=== PATIENT | female | born 1995 | race Caucasian/White ===

== ENCOUNTER 2019-06-04 14:37 | Outpatient (REF) | payer OTHER, SELFPAY ==
--- NOTE | 2019-06-04 11:30 | PAPFT_PTH ---
PATIENT: Nicolasa Baumann LOC: [facility] U#:[id number] AGE/SX: 23/F ROOM: RE06/04/[address]: HALLIE Morris : 1995 BED: DIS: 06/04/2019 SPEC #: [id number] RECD: 06/04/19 15:02 STATUS: TIP GOTTLIEB #: [id number] SUKHWINDER: 06/04/19 11:[address]: Julia Escobar DEPT: [facility] Cytology RECD BY: Samia Bradford Tissues: 1 - CX/ENDOCX FOR PAP SMEARS Procedures: PAP THIN PREP/UVM Screening Comments: [id number]
== END 2019-06-04 14:57 ==
LOC: LBN 14:37
PROVIDERS: PCP Nurse Practitioner Family; Visit Provider Nurse Practitioner Family
DX: Z12.4 Encounter for screening for malignant neoplasm of cervix (principal)
CPT/HCPCS: 88142

== ENCOUNTER 2020-07-08 01:02 | Outpatient (CLI) | payer OTHER, SELFPAY ==
--- NOTE | 2020-07-08 07:19 | DI.US_ITS ---
EXAM: US OB 2-3 TRIMESTER W MOD CLINICAL HISTORY: late dating usg 14 + weeks,Z34.90 TECHNIQUE: Ultrasound performed using standard protocol. COMPARISON: No exams were available for comparison FINDINGS: Ob ultrasound was performed utilizing 1st trimester protocol. biometry is consistent with gest ational age of 13 weeks 6 days and EDC 01/07/2021. Placenta is anterior and low lying with the place ntal tip lying about 14 millimeters from the cervix, however at less than 14 weeks is not necessarily an abnormal finding.. No gross placenta previa. There is visually a normal quantity of amniotic fluid. heart rate is 153 BPM. IMPRESSION: Thirteen week 6 day intrauterine gestation, a routine 2nd trimester protocol scan may be obtained to evaluate placental location and perform anomaly screen. DATA REPOSITORY:
== END 2020-07-08 01:22 ==
PROVIDERS: PCP Nurse Practitioner Family; Visit Provider Advanced Practice Midwife
DX: Z34.91 Encounter for supervision of normal pregnancy, unspecified, first trimester (principal)
CPT/HCPCS: 76805

== ENCOUNTER 2020-07-08 15:17 | Outpatient (CLI) | payer OTHER, SELFPAY ==
[2020-07-08 16:02] LABS: Abs Immature Grans 0.04 10^3/uL (0.0-0.06); Absolute Basophil Count 0.03 10^3/uL (0.0-0.2); Absolute Eosinophil Count 0.02 10^3/uL (0.0-0.7); Absolute Lymphocyte Count 1.75 10^3/uL (1.2-3.4); Absolute Monocyte Count 0.41 10^3/uL (0.1-0.8); Absolute Neutrophil Count 7.63 10^3/uL (1.2-6.7); Basophils % 0.3; Eosinophils % 0.2; HCT 41.4 % (36.0-46.0); HGB 13.8 g/dL (11.2-15.7); Immature Grans % 0.4; Lymphocytes % 17.7; MCH 29.6 pg (27.0-33.0); MCHC 33.3 % (32.0-36.0); MCV 88.7 fL (80-95); Monocytes % 4.1; Neutrophils % 77.3; Nucleated RBC 0 %; Platelet Count 156 10^3/uL (130-400); RBC 4.67 10^6/uL (3.93-5.22); RDW 13.5 % (11.7-14.6); WBC 9.88 10^3/uL (4.4-10.8)
[2020-07-08 17:09] LABS: TSH (W/Ref FT4) 0.06 uIU/mL (0.36-3.74)
[2020-07-08 18:37] LABS: FREE T4 1.14 ng/dL (0.76-1.46)
[2020-07-09 09:44] LABS: HIV-1/2 Ag & Ab Screen Negative (Negative)
[2020-07-09 10:57] LABS: Varicella IgG Antibody Positive (See Note)
[2020-07-09 11:01] LABS: Rubella IgG Ab (UVM) Positive (See Note)
[2020-07-09 16:08] LABS: Hepatitis B Surface Ag Negative (Negative)
[2020-07-09 16:52] LABS: Hepatitis C Ab w Rflx HCV PCR Negative (Negative)
[2020-07-10 10:46] LABS: Syphilis Total Ab w/Reflex Nonreactive (Nonreactive)
== END 2020-07-08 15:37 ==
PROVIDERS: PCP Nurse Practitioner Family; Visit Provider Advanced Practice Midwife
DX: Z34.91 Encounter for supervision of normal pregnancy, unspecified, first trimester (principal)
CPT/HCPCS: 36415; 86787; 86803; 86850; 86900; 86901; 87340; 87389; 84439; 84443; 85025; 86762; 86780

== ENCOUNTER 2020-07-08 16:05 | Outpatient (REF) | payer OTHER, SELFPAY ==
[2020-07-08 19:30] LABS: *AMPHETAMINES SCREEN URINE Negative (Negative); *BARBITURATES SCREEN URINE Negative (Negative); *BENZODIAZEPINES SCREEN URINE Negative (Negative); Cannabinoids THC Negative (Negative); Cocaine Screen,Urine Negative (Negative); METHADONE URINE SCREEN Negative (Negative); OPIATES URINE SCREEN Negative (Negative)
[2020-07-08 19:32] LABS: Tricyclic Antidepressants Negative (Negative)
[2020-07-12 12:29] LABS: Buprenorphine Negative; Norbuprenorphine Negative
== END 2020-07-08 16:25 ==
LOC: LBN 16:05
PROVIDERS: PCP Nurse Practitioner Family; Visit Provider Advanced Practice Midwife
DX: Z34.91 Encounter for supervision of normal pregnancy, unspecified, first trimester (principal)
CPT/HCPCS: 80307; 87086

== ENCOUNTER 2020-08-12 01:28 | Outpatient (CLI) | payer OTHER, SELFPAY ==
--- NOTE | 2020-08-12 08:30 | DI.US_ITS ---
EXAM: US OB 2-3 TRIMESTER CLINICAL HISTORY: , Z34.90. TECHNIQUE: Transabdominal obstetrical ultrasound performed. COMPARISON: US US OB 2-3 TRIMESTER W MOD from 07/08/2020 FINDINGS: Transabdominal obstetrical ultrasound performed. FINDINGS: Number of fetuses: One. position: Vertex. heart rate: bpm. Placental grade: 1 Placental location: Anterior, low lying. The tip of the placenta measures 1.6 cm from the internal o s. BIOMETRIC DATA: BPD: 43 millimeters, 18+ 6 weeks HC: 160 millimeters, 18+ 6 weeks AC: 133 millimeters, 18+ 6 weeks FL: 29 millimeters, 19+ 0 weeks Cisterna Magna: 2.2 millimeters Cerebellum: 1.87 cm EFW: 262 grms 64% Composite Age: 18+ 6 weeks EDC by US: December, Heart Rate: 147BPM Amniotic fluid index: Amount of fluid is within normal limits. ANATOMICAL SURVEY: Four-chamber heart: Unremarkable. LVOT: Unremarkable. RVOT: Unremarkable. Left-sided stomach: Unremarkable. urinary bladder: Unremarkable. Bilateral kidneys: Unremarkable. Three-vessel cord: Unremarkable. Cord insertion: Unremarkable. Umbilical artery velocity: Unremarkable. Posterior fossa:Unremarkable. ventricles: Unremarkable. nose: Unremarkable. lips: Unremarkable. palate: Unremarkable. spine: Unremarkable. Two arms and two legs: Unremarkable. IMPRESSION: 1. Single live intrauterine gestation measuring 18 weeks 6 days.. 2. Normal anatomic survey. 3. Low-lying placenta. DATA REPOSITORY:
== END 2020-08-12 01:48 ==
PROVIDERS: PCP Nurse Practitioner Family; Visit Provider Advanced Practice Midwife
DX: Z34.92 Encounter for supervision of normal pregnancy, unspecified, second trimester (principal); O44.42 Low lying placenta NOS or without hemorrhage, second trimester
CPT/HCPCS: 76805

== ENCOUNTER 2020-08-12 15:40 | Outpatient (CLI) | payer OTHER, SELFPAY ==
[2020-08-12 16:22] LABS: TSH (W/Ref FT4) 0.52 uIU/mL (0.36-3.74)
== END 2020-08-12 16:00 ==
PROVIDERS: PCP Nurse Practitioner Family; Visit Provider Advanced Practice Midwife
DX: R94.6 Abnormal results of thyroid function studies (principal)
CPT/HCPCS: 36415; 84443

== ENCOUNTER 2020-10-15 03:32 | Outpatient (CLI) | payer OTHER, SELFPAY ==
[2020-10-15 16:25] LABS: HCT 35.7 % (36.0-46.0); HGB 11.8 g/dL (11.2-15.7); MCHC 33.1 % (32.0-36.0); MCV 93.7 fL (80-95); MPV 10.4 fL (8.0-11.0); Platelet Count 141 10^3/uL (130-400); RBC 3.81 10^6/uL (3.93-5.22); RDW 14.5 % (11.7-14.6); RDW-SD 49.6 fL; WBC 9.07 10^3/uL (4.4-10.8)
[2020-10-15 16:44] LABS: Glucose,1 Hr (Glucola) 98 mg/dL (80-140)
== END 2020-10-15 03:52 ==
PROVIDERS: PCP Nurse Practitioner Family; Visit Provider Advanced Practice Midwife
DX: Z34.91 Encounter for supervision of normal pregnancy, unspecified, first trimester (principal)
CPT/HCPCS: 36415; 82950; 85027

== ENCOUNTER 2020-12-10 19:12 | Outpatient (REF) | payer OTHER, SELFPAY ==
[2020-12-10 17:18] LABS: *AMPHETAMINES SCREEN URINE Negative (Negative); *BARBITURATES SCREEN URINE Negative (Negative); *BENZODIAZEPINES SCREEN URINE Negative (Negative); Cannabinoids THC Negative (Negative); Cocaine Screen,Urine Negative (Negative); METHADONE URINE SCREEN Negative (Negative); OPIATES URINE SCREEN Negative (Negative)
[2020-12-10 17:29] LABS: Tricyclic Antidepressants Negative (Negative)
[2020-12-16 10:00] LABS: Buprenorphine Negative ng/mL (Cutoff: 5.0)
== END 2020-12-10 19:32 ==
LOC: NCHCN 19:12
PROVIDERS: PCP Nurse Practitioner Family; Visit Provider Advanced Practice Midwife
DX: Z34.93 Encounter for supervision of normal pregnancy, unspecified, third trimester (principal); Z3A.36 36 weeks gestation of pregnancy
CPT/HCPCS: 80307; 87081

== ENCOUNTER 2021-01-04 19:30 | Inpatient (IN) | payer OTHER, SELFPAY ==
[2021-01-04] VITALS (19 sets, daily range): BP systolic 118–170; BP diastolic 71–98; PULSE 78–129; O2SAT 99–100
--- NOTE | 2021-01-04 20:18 | W.PM.OBHPL1 ---
Date of service: 01/04/21 Time of Service: 20:18 Assessment and Plan Assessment and plan (1) 39 weeks gestation of : Status: Acute Assessment and plan: A: primipara, low risk , arrived to in 2nd stage labor SROM clear confirmed Category 1 tracing w/earlies GBS neg, low risk for SD and PPH P: Admit to , draw CBC and T&S, COVID swab Expectant management Anticipate shortly OB-HPI Labor/Delivery History of Present Illness Reason for Visit: SHOM,LABOR AT TERM Chief Complaint: Uterine Contractions; Suspected Rupture of Membranes , Associated Signs and Symptoms of Suspected ROM: leaking clear and blood tinged fluids since 1330 today, paged manager educational at 1830 stating her contractions had become regular since 1800, pt directed to come to the Center for evaluation.. DUANE Calculator Estimated Delivery Date Method Current WG Current Estimate 01/07/21 Ultrasound #1 39w 4d Other Estimates 12/11/20 LMP (Uncertain) 43w 3d History of Present Expected Delivery Route/Plan - CNM FOB/- Niko Baumann Doesn't want to know gender GBS negative Specific Issues/Plan 1. Enlarged thyroid - TSH drawn 07/08, TSH low 0.06, T4- 1.14, 1a. TSH/free T4 repeated 08/12 = TSH nml at 0.52, free T4 not indicated 2. Declines genetic testing. 3. anatomy survey shows low lying placenta, repeat @ 28 wks. 3a. Declined US at 28 weeks because partner could not attend. Agrees to postpone until 32 weeks to see if restrictions change. 3b. [facility] 11/28/20 usg: edge of placenta 9.6 cm from os. al Review of Systems All systems reviewed & are unremarkable except as noted in HPI and below Constitutional Constitutional: Reports as per HPI and Reports system reviewed and no additional complaints, except as documented Cardiovascular Cardiovascular: Reports system reviewed and no additional complaints, except as documented Respiratory Respiratory: Reports system reviewed and no additional complaints, except as documented Gastrointestinal Gastrointestinal: Reports system reviewed and no additional complaints, except as documented and Reports nausea Genitourinary Genitourinary: Reports system reviewed and no additional complaints, except as documented and Reports vaginal discharge Musculoskeletal Musculoskeletal: Reports system reviewed and no additional complaints, except as documented Integumentary/Breasts Skin/Breast: Reports system reviewed and no additional complaints, except as documented Neurologic Neurologic: Reports system reviewed and no additional complaints, except as documented Psychiatric Psychiatric: Reports system reviewed and no additional complaints, except as documented [facility] Medical History (Updated 01/05/21 @ 00:27 by Miri Barragan) Abnormal thyroid stimulating hormone (TSH) level Low lying placenta nos or without hemorrhage, second trimester Family History (Updated 07/08/20 @ 14:29 by Sowmya Gabriel CNM) Maternal Grandmother Breast cancer Mother Hyperlipidemia Father Hypertension Hyperlipidemia Paternal Grandmother Parkinson disease Social History (Updated 06/04/19 @ 11:42 by Julia Escobar NP) Smoking/Tobacco Use Status: Never Smoking risk assessment performed?: Yes current occupation: [employer] Female Reproductive History Menstrual control method: condoms History History 1 Para 0 Hx # Term Pregnancies 0 Multiple births 0 Hx # Pregnancies 0 Ectopic pregnancies 0 AB induced 0 Hx Number of Living Children 0 AB spontaneous 0 Meds Home Medications and Allergies Home Medications Medication Instructions Recorded Confirmed Type prenat.vits,quinton,[id number] 1 tab PO DAILY 06/20/20 12/26/20 History Allergies Allergy/AdvReac Type Severity Reaction Status Date / Time gluten AdvReac Mild Unverified 12/10/20 13:55 Exam Physical Exam Vital Signs Reviewed: Yes Constitutional Constitutional: moderate distress and average body habitus Detailed Labor and Delivery Exam Dilation: 10 station: +3 Amniotic Membrane Status: Ruptured Rupture Method: Spontaneous Amniotic Fluid: Clear (grossly ruptured, fluid visibly draining from introitus) Contraction Frequency(min): q 2-3 minutes Contraction Intensity: Moderate/Strong Fetus A Heart Rate Baseline: 140 Monitor Accelerations: 15 X 15 Monitor Decelerations: Early Variability: Moderate (6-25 BPM) Presentation: Vertex Categories: Category I Est. Weight: 7 lb 4.404 oz Est. Weight: 3300 gms Date of Membrane Rupture: 01/04/21 Time of Membrane Rupture: 13:30 HEENT Exam HEENT Exam: Normal Neck Exam Neck Exam: Normal Chest/Brest/Axilla Exam Chest Exam: Normal Breast Exam Breast Exam: Normal Respiratory Exam Respiratory Exam: Normal Cardiovascular Exam Cardiovascular Exam: Normal Abdominal Exam Abdominal Exam: Normal (gravid) Rectal Exam Rectal Exam: Not Done Exam Exam: Normal Extremities Exam Extremities Exam: Normal Back/Spine/Pelvis Exam Back Exam: Normal Pelvis Adequate: Yes Skin Exam Skin Exam: Normal Neurological Exam Neurological Exam: Normal Psychiatric Exam Psychiatric Exam: Normal Results Results Group Beta Strep: Negative Blood Type: A+ Rubella Status: Immune Varicella Immunity: Immune Risk Assessment Risk for Shoulder Dystocia Historical/Initial OB: NEGATIVE FOR: Pelvic Abnormality, Pre- BMI>30, Previous Shoulder Dystocia or Previous Macrosomia Increased Risk?: No Date/Initial: 12/19/20/al Delivery Plan @ 36wks: al Risk for Pre-Eclampsia Daily Dose ASA Indicated: No Yes, if one or more: NEGATIVE FOR: Hx Pre-E/Gest HTN, Chronic HTN, Multiple Gestation, Pre-gestational DM, Renal Disease, Systemic Lupus or APA Syndrome Yes, if 2 or more: POSITIVE FOR: Nulliparity; NEGATIVE FOR: Age>= 35 yrs, >10yr btwn pregnancies, BMI>30, ethinicty, Mother/Sister w/ Pre-E or Previous IUGR Risk for Post- Hemorrhage Initial: NEGATIVE FOR: Multiple Gestation, Previous PPH, Known Clotting Deficiency, Grand Multiparity or Anticoagulation At Risk?: No Counseled re: Active Management: Yes (12/19/20 al) Date/Initials: 12/19/20 al Risks Reviewed Risks Reviewed Upon Admission: Yes
--- NOTE | 2021-01-04 20:33 | NUR.NOTE ---
Nursing Note: Tub temp 99F
[2021-01-04 20:38] LABS: HCT 37.6 % (36.0-46.0); HGB 12.3 g/dL (11.2-15.7); MCH 28.5 pg (27.0-33.0); MCHC 32.7 % (32.0-36.0); MCV 87.2 fL (80-95); MPV 11.7 fL (8.0-11.0); Platelet Count 148 10^3/uL (130-400); RBC 4.31 10^6/uL (3.93-5.22); RDW 13.7 % (11.7-14.6); RDW-SD 43.8 fL; WBC 15.05 10^3/uL (4.4-10.8)
--- NOTE | 2021-01-04 21:24 | NUR.NOTE ---
Nursing Note:near
[2021-01-04 21:57] LABS: Source Nasopharynx
[2021-01-04] MEDS: Oxytocin 10 UNITS/ML VIAL IM (22:00)
[2021-01-04] MEDS: Methylergonovine 0.2 MG/ML VIAL IM (22:15)
[2021-01-04] MEDS: Lactated Ringers 1,000 ML 1000 ML IV (22:15)
[2021-01-04 22:43] LABS: COVID-19 PCR Negative (Negative); Influenza A PCR Negative (Negative); Influenza B PCR Negative (Negative); RSV PCR Negative (Negative)
[2021-01-04] MEDS: fentaNYL 100 MCG/2 ML VIAL IVP (22:45)
[2021-01-04] MEDS: Oxytocin/Normal Saline 30 UNIT/500 ML BAG 95 UNITS IV (23:10)
[2021-01-05] VITALS (8 sets, daily range): BP systolic 99–163; BP diastolic 58–86; PULSE 68–97; RESP 16–18; TEMP 36.6–36.8; O2SAT 98–99
--- NOTE | 2021-01-05 00:28 | NUR.NOTE ---
Nursing Note:01/04/21@2220 Dr. Macias called to evaluate pt for bleeding from possible vaginal laceration. [id number] Dr Macias at bedside.
--- NOTE | 2021-01-05 00:31 | W.OBDELIVERY ---
Date of service: 01/04/21 Time of Service: 23:30 OB Labor/ Delivery Information Baby A Delivery Delivery Method: Spontaneaous Presentation: Vertex Vertex Position: Left Occipital Anterior Breech Position: N/A Cord Description-Baby A: 3 Vessels Amniotic Fluid: Clear Estimated Blood Loss: 800 Delivery Outcome: Liveborn Infant Transferred: Remains with Mother Note: Pt arrived fully dilated with mild urges to bear down, category 1 tracing verified and admission procedures completed, pt requested to push in the tub, entered the tub 45 minutes after arrival to unit, water temp 99 degrees and intermittent FHT auscultation done per protocol. over intact perineum, loose nuchal cord reduced overhead, shoulders transverse which delivered easily, vigorous female to mother's arms, kept warm with blankets and pouring warm water over blankets while held by mother, pitocin 10 units IM given, Rene placenta intact with 3 VC, then cord clamped, cut by FOB. Bonding time in tub x 30 minutes with nml rubra noted, FOB held baby while mother assisted to bed. Bilateral labial lacerations noted, perineum intact. Right labial lac is superficial, not bleeding, not repaired. Local anesthesia injected to left labia and repair done with 3.0 Vicryl at which time increasing vaginal bleeding observed. Methergine 0.2 mg IM given, fundus firm below umbilicus and bladder not palpable. Source of bleeding identified from laceration on left side of lower vaginal wall but visualization quite difficult and bleeding persistent. Dr. Macias paged, IV access initiated, LR bolus begun and TXA [address] Macias arrived at 2235, additional suturing under further local anesthesia, IV fentanyl given for pain, and use of wall suction to assist with visualization performed, see MD repair note. Left vaginal wall hematoma identified and stable. EBL 600 ml per MD. Pt's BP and pulse remained stable, fundus remains firm and below umbilicus. wt 3470 gms, apgars 8/9. Initial debriefing done with pt and regarding blood loss, diagnosis and treatment measures, will continue to discuss and review with pt/ as needed throughout hospital stay. Excellent family bonding observed. Providers Doctor: Marielos Macias Nurse Coagulation Operator: iMri Barragan Nurse: Zayra Loza Nurse: Enrique Huber Labor/Delivery Information Number of Babies in Womb: 1 Steroids Given: None Reason Steroids Not Administered: N/A Group Beta Strep: Negative Antibiotics Administered: No Rubella Status: Immune Blood Type: A+ Varicella Immunity: Immune Maternal Complications: Hemorrhage (600-800 ml EBL) and Other (increased blood loss d/t vaginal laceration, left vaginal wall hematoma) Shoulder Dystocia: No Stages of Labor Onset of Labor Date: 01/04/21 Onset of Labor Time: 17:00 Complete Dilatation Date: 01/04/21 Complete Dilatation Time: 20:15 Labor - Stage 1 Duration: 0 minutes ROM Baby A: 01/04/21 ROM Baby A: 13:30 ROM Total Time- Baby A: [id number] Delivery Date-Baby A: 01/04/21 Infant Delivery Time-Baby A: 21:35 Labor Stage 2 Duration: 1 hours and 20 minutes Placenta Delivery Date-Baby A: 01/04/21 Placenta Delivery Time-Baby A: 21:40 Labor-Stage 3 Duration: 5 minutes Total Length of Labor-Baby A: 4 hours and 35 minutes Placenta Status: Delivered Baby A Gender: Female Gestational Status: Term (39-41.6 wks) weight: 7 lb 10.401 oz Weight Comment: 3470 gms Score-1 Minute Interval(Baby A) Heart Rate-1 minute: 100 BPM or Greater Respiratory Effort- 1 minute: Spontaneous/Strong Cry Muscle Tone-1 minute: Active Movement Reflex Response-1 minute: Prompt Response Color-1 minute: Pallor or Cyanosis Score-5 Minute Interval(Baby A) Heart Rate- 5 minute: 100 BPM or Greater Respiratory Effort-5 minute: Spontaneous/Strong Cry Muscle Tone-5 minute: Active Movement Reflex Response-5 minute: Prompt Response Color-5 minute: Bluish Hands or Feet Procedure Procedures: Control of Hemorrhage , Pitocin 10 units given IM prophylactically immediately after delivery, 0.2 mg Methergine IM given as vaginal bleeding was identified 15 minutes later, IV access and LR bolus initiated, TXA 1 gm infusion given at 1 hr and repeated 1 hr later after bleeding was brought under control by laceration repair and left vaginal hematoma was identified. / Cord Blood Collection Interventions Repair of Laceration Type: Other (left labia, left lower vaginal wall and floor) , Laceration Extension: N/A . Sponge Count Correct: Yes , Sharp Count Correct: Yes . Laceration Repair Note: left labia repaired by TU w/3.0 Vicryl, left lower vaginal wall and floor repair by MD with 3.0 Vicryl, local anesthesia and IV fentanyl Shoulder Dystocia Delivery Times Date of Delivery of Head: 01/04/21
[2021-01-05] MEDS: Acetaminophen 325 MG TAB 650 MG PO ×4 (00:33→19:25)
[2021-01-05] MEDS: Ibuprofen 600 MG TAB PO ×4 (00:35→22:00)
[2021-01-05] MEDS: oxyCODONE 5 MG TAB PO ×3 (03:00→19:24)
--- NOTE | 2021-01-05 08:33 | W.PM.OBPNV1 ---
Date of service: 01/05/21 Time of Service: 08:33 Assessment and Plan Assessment and plan (1) Term delivered: Status: Acute Assessment and plan: A: 12 hours Status stable/improving well P: Pt denies dizziness, states she is feeling well Plan for CBC this morning Routine care support Anticipate discharge in 1-2 days (2) Hematoma of vagina during delivery: Status: Acute Assessment and plan: A: Stable and resolving P: Monitor for continued improvement Subjective Subjective Interval history: Pt states this morning that she is feeling better then a few hours ago, pressure and discomfort in vaginal area has improved, no dizziness when up to void. Patient comments: Pain well controlled, Tolerating diet and Flatus present [place] baby status: Doing well, Nursing well, Rooming in and Strong Bonding Observed feeding status: Exclusively breast feeding Exam Physical Exam Vital signs: Temp Pulse Resp BP Pulse Ox 98.1 F 68 18 99/58 L 100 01/05/21 06:06 01/05/21 06:06 01/05/21 06:06 01/05/21 06:06 01/04/21 23:19 Vital Signs Reviewed: Yes Constitutional Constitutional: no acute distress HEENT Exam HEENT Exam: Normal Neck Exam Neck Exam: Normal Breast Exam Bilateral: Breast Exam: Normal and Soft Nipple Exam: Normal and Uninjured Respiratory Exam Respiratory Exam: Normal Cardiovascular Exam Cardiovascular Exam: Normal Abdominal Exam Abdomen: Other (soft, nontender) Fundal Exam Fundus: Below Umbilicus and Firm Rectal Exam Rectal Exam: Normal Exam Perineum: Hematoma (vaginal, not visible, known by delivery hx), Intact and Repair Intact (labial repair and vaginal wall/floor intact) External: Present normal urethra appearance and vulvar tenderness Extremities Exam Extremity Exam: Normal Back/Spine/Pelvis Exam Back Exam: Normal Skin Exam Skin Exam: Normal Psychiatric Exam Psychiatric Exam: Normal (tired)
--- NOTE | 2021-01-05 10:55 | W.OBCONSULT ---
Date of service: 01/04/21 Time of Service: 22:35 History of Present Illness History of Present Illness Chief Complaint: Called to evaluate patient by TU Barragan Narrative: I was paged by the nursing staff at the birthing center at [facility] at 22:20 with reports of a vaginal delivery complicated by increased vaginal bleeding and difficulty assessing and repairing a vaginal laceration. I arrived at 22:35 and started assessment of a left sided vaginal laceration that had increased bleeding and poor visualization per patient discomfort and volume of bleeding. The patient had an IV and had received methergine and IM pitocin and 1 gram of TXA was being administered as I arrive for evaluation. I started assessment and placed wall suction, asked for lap pads, gave additional local pain medication as well as 100mcg of Fentanyl for patient pain control. She was also recieving Nitrous Oxide when I arrived and had been placed on a continuous pulse oximeter. The uterus was firm and the bleeding was clearly visualized coming from the left vaginal side wall. Initial attempts to control bleeding were difficult and the OR team was paged however, with additional visualization measures and pain control the left vaginal side wall was sewn with running locking 3-0 vicryl and bleeding was controlled. The OR team was advised that they were not needed. Careful inspection of the vagina and cervix did not reveal a high sulcal or vaginal tear, there was no perineal involvement. Left outer vaginal side wall and labia appear to have a small hematoma which had increased bleeding but was hemostatic at the end of the repair. The small right periurethral tear was not repaired per it's hemostatic state. I recommended an additional dose of 1 gram of TXA administration given the highly vascular nature of the bleeding. Consults Consult date: 01/04/21 Requesting physician: Miri Barragan [facility] Medical History (Updated 01/05/21 @ 08:38 by Miri Barragan) Abnormal thyroid stimulating hormone (TSH) level Low lying placenta nos or without hemorrhage, second trimester Family History (Updated 07/08/20 @ 14:29 by Sowmya Gabriel CNM) Maternal Grandmother Breast cancer Mother Hyperlipidemia Father Hypertension Hyperlipidemia Paternal Grandmother Parkinson disease Social History (Updated 06/04/19 @ 11:42 by Julia Escobar NP) Smoking/Tobacco Use Status: Never Smoking risk assessment performed?: Yes current occupation: [employer] Female Reproductive History Menstrual control method: condoms History History 1 Para 0 Hx # Term Pregnancies 0 Multiple births 0 Hx # Pregnancies 0 Ectopic pregnancies 0 AB induced 0 Hx Number of Living Children 0 AB spontaneous 0 Results Last Vital Signs Temp 98.2 F 01/05/21 07:30 Pulse 86 01/05/21 07:30 Resp 16 01/05/21 07:30 BP 127/80 01/05/21 07:30 Pulse Ox 100 01/04/21 23:19 Labs Result diagrams: 01/04/21 20:30 Labs: Laboratory Results - last 24 hr 01/04/21 01/04/21 01/04/21 20:25 20:25 20:25 WBC RBC Hgb Hct MCV MCH MCHC RDW Plt Count MPV COVID-19 Source Nasopharynx SARS-CoV-2 (PCR) Cancelled Negative Nasopharyn COVID-19 PCR Cancelled Influenza Type A (PCR) Negative Influenza Type B (PCR) Negative RSV (PCR) Negative Ref Test Perform Site Cancelled Patient ABO/Rh A Positive Antibody Screen Negative 01/04/21 20:30 WBC 15.05 H RBC 4.31 Hgb 12.3 Hct 37.6 MCV 87.2 MCH 28.5 MCHC 32.7 RDW 13.7 Plt Count 148 MPV 11.7 H COVID-19 Source SARS-CoV-2 (PCR) Nasopharyn COVID-19 PCR Influenza Type A (PCR) Influenza Type B (PCR) RSV (PCR) Ref Test Perform Site Patient ABO/Rh Antibody Screen
[2021-01-05 11:46] LABS: HGB 8.1 g/dL (11.2-15.7); MCHC 33.8 % (32.0-36.0); Platelet Count 131 10^3/uL (130-400); RBC 2.79 10^6/uL (3.93-5.22); RDW 13.9 % (11.7-14.6); RDW-SD 43.3 fL; WBC 11.79 10^3/uL (4.4-10.8)
[2021-01-05] MEDS: Docusate Sodium 100 MG CAP PO (19:25)
[2021-01-06 00:04] VITALS: BP 109/66; PULSE 78; RESP 19; TEMP 36.5; O2SAT 97
[2021-01-06] MEDS: Acetaminophen 325 MG TAB 650 MG PO ×4 (00:04→18:37)
[2021-01-06] MEDS: Ibuprofen 600 MG TAB PO ×3 (04:08→18:37)
[2021-01-06 04:51] VITALS: BP 100/66; PULSE 69; RESP 16; TEMP 36.7
[2021-01-06 07:30] VITALS: BP 114/76; PULSE 74; RESP 14; TEMP 36.9
[2021-01-06] MEDS: Docusate Sodium 100 MG CAP PO ×2 (10:15→18:37)
[2021-01-06 11:53] LABS: HCT 24.5 % (36.0-46.0); MCH 29.3 pg (27.0-33.0); MCHC 32.7 % (32.0-36.0); MCV 89.7 fL (80-95); MPV 11.7 fL (8.0-11.0); Platelet Count 152 10^3/uL (130-400); RBC 2.73 10^6/uL (3.93-5.22); RDW 14.4 % (11.7-14.6); RDW-SD 45.7 fL; WBC 11.12 10^3/uL (4.4-10.8)
[2021-01-06 12:45] VITALS: BP 110/70; PULSE 84; RESP 14; TEMP 37.1
--- NOTE | 2021-01-06 13:05 | W.PM.OBPNV1 ---
Date of service: 01/06/21 Time of Service: 13:03 Assessment and Plan Assessment and plan (1) Term delivered: Status: Acute Assessment and plan: A: PPD#1 anemia, stable per repeat CBC, asymptomatic issues Pt and FOB have no further questions or request to discuss events at this time P: Pt to begin iron supplement and resume PNV's after initial BM Counseled on the importance of rest and high fluid intake for next 3-6 wks Plan for discharge tomorrow RTO 1 week for Hgb and coping/wellness check LC consult today, BF support from nursing staff BCM choice is condoms which has worked well previously for pt (2) Hematoma of vagina during delivery: Status: Acute Assessment and plan: A: Stable and resolving P: Monitor for continued improvement Subjective Subjective Patient comments: Pain well controlled, Tolerating diet and Flatus present [place] baby status: Nursing well, Rooming in and Strong Bonding Observed feeding status: Exclusively breast feeding Narrative: baby not released d/t 7% weight loss, LC consult requested by Peds Exam Physical Exam Vital signs: Temp Pulse Resp BP Pulse Ox 98.9 F 88 18 107/70 97 01/06/21 23:00 01/06/21 23:00 01/06/21 23:00 01/06/21 23:00 01/06/21 16:33 Vital Signs Reviewed: Yes Constitutional Constitutional: no acute distress HEENT Exam HEENT Exam: Normal Neck Exam Neck Exam: Normal Breast Exam Bilateral: Breast Exam: Normal and Soft Respiratory Exam Respiratory Exam: Normal Cardiovascular Exam Cardiovascular Exam: Normal Abdominal Exam Abdomen: Other (soft, nontender) Fundal Exam Fundus: Below Umbilicus and Firm Rectal Exam Rectal Exam: Hemmorhoids (x2) Exam Perineum: Intact and Repair Intact (labial repair and vaginal wall/floor intact) External: Present normal urethra appearance, swelling (left labia with minor edema) and vulvar tenderness Extremities Exam Extremity Exam: Normal Back/Spine/Pelvis Exam Back Exam: Normal Skin Exam Skin Exam: Normal Neurological Exam Neurological Exam: Normal Psychiatric Exam Psychiatric Exam: Normal (tired) Results Abnormal Lab Findings: Abnormal Labs 01/04/21 01/05/21 01/06/21 20:30 11:25 11:28 WBC 15.05 H 11.79 H 11.12 H RBC 2.79 L 2.73 L Hgb 8.1 L D 8.0 L Hct 24.0 L D 24.5 L MPV 11.7 H 12.0 H 11.7 H
[2021-01-06 16:33] VITALS: BP 118/65; PULSE 93; RESP 16; TEMP 37; O2SAT 97
[2021-01-06 23:00] VITALS: BP 107/70; PULSE 88; RESP 18; TEMP 37.2
[2021-01-07] MEDS: Acetaminophen 325 MG TAB 650 MG PO ×4 (04:06→22:24)
[2021-01-07] MEDS: Ibuprofen 600 MG TAB PO ×4 (04:19→22:24)
[2021-01-07 09:00] VITALS: BP 112/74; PULSE 98; RESP 14; TEMP 37.3
--- NOTE | 2021-01-07 09:32 | OBPPV_ITS ---
Date of service: 01/07/21 Time of Service: 09:32 Assessment and Plan Assessment and plan (1) care following vaginal delivery: Status: Acute Assessment and plan: doing well . have reviewed ice pack at home, iron supplementation and 1 week retrun to office for follow up.SHERINE (2) Hematoma of vagina during delivery: Status: Acute Assessment and plan: Perineum healing, discussed positioning in relation to continued edema and warning signs for increased edema or bleeding.SHERINE Subjective Subjective Interval history: Feeling well this morning, no dizziness when out of bed. Are hoping to be discharged later today. Pediatrics returning at noon to further assess baby for discharge. Patient comments: Pain well controlled and Tolerating diet [place] baby status: Doing well Narrative: Pumping to stimulate milk and working with LC. Exam Physical Exam Vital signs: Temp Pulse Resp BP Pulse Ox 98.9 F 88 18 107/70 97 01/06/21 23:00 01/06/21 23:00 01/06/21 23:00 01/06/21 23:00 01/06/21 16:33 Vital Signs Reviewed: Yes Constitutional Constitutional: no acute distress HEENT Exam HEENT Exam: Normal Neck Exam Neck Exam: Not Done Respiratory Exam Respiratory Exam: Normal Cardiovascular Exam Cardiovascular Exam: Normal Fundal Exam Fundus: Below Umbilicus and Firm Rectal Exam Rectal Exam: Not Done Exam Patient deferred: perineal exam Perineum: Edematous (softly edematous, using ice as directed) Extremities Exam Extremity Exam: Normal Skin Exam Skin Exam: Normal Neurological Exam Neurological Exam: Normal Psychiatric Exam Psychiatric Exam: Normal Results Hemoglobin/Hematocrit: Hgb 8.0 g/dL (11.2-15.7) L 01/06/21 11:28 Hct 24.5 % (36.0-46.0) L 01/06/21 11:28 Abnormal Lab Findings: Abnormal Labs 01/04/21 01/05/21 01/06/21 20:30 11:25 11:28 WBC 15.05 H 11.79 H 11.12 H RBC 2.79 L 2.73 L Hgb 8.1 L D 8.0 L Hct 24.0 L D 24.5 L MPV 11.7 H 12.0 H 11.7 H
--- NOTE | 2021-01-07 14:35 | W.PM.OBPNV1 ---
Date of service: 01/07/21 Time of Service: 14:35 Assessment and Plan Assessment and plan (1) care following vaginal delivery: Status: Acute Assessment and plan: continue present management.SHERINE (2) Hematoma of vagina during delivery: Status: Acute Assessment and plan: continue with ice and rest.SHERINE (3) Acute blood loss anemia: Status: Acute Assessment and plan: discussed length of time to recover from blood loss and need to rest / hydrate and replace iron stores.SHERINE Subjective Subjective Interval history: patient is doing well overall but is very tired and concerned about her perineal edema. She is interested in staying over again tonight. As she is recovering from vaginal delivery complicated by vaginal hematoma and laceration repaired as well as acute blood loss anemia, we will have patient stay tonight for discharge 01/08/21. Patient comments: Pain well controlled baby status: Doing well Narrative: Per pediatrics there is a good feeding plan in place for the baby and Mom is doing well with breast feeding and pumping. Exam Physical Exam Vital signs: Temp Pulse Resp BP Pulse Ox 98.9 F 88 18 107/70 97 01/06/21 23:00 01/06/21 23:00 01/06/21 23:00 01/06/21 23:00 01/06/21 16:33 Vital Signs Reviewed: Yes Constitutional Constitutional: no acute distress Respiratory Exam Respiratory Exam: Normal Fundal Exam Fundus: Below Umbilicus and Firm Rectal Exam Rectal Exam: Not Done Exam Patient deferred: perineal exam Perineum: Bruising (small echymotic area on patient's right side, soft to touch.) and Edematous Extremities Exam Extremity Exam: Normal Neurological Exam Neurological Exam: Normal Psychiatric Exam Psychiatric Exam: Normal Results Hemoglobin/Hematocrit: Hgb 8.0 g/dL (11.2-15.7) L 01/06/21 11:28 Hct 24.5 % (36.0-46.0) L 01/06/21 11:28 Abnormal Lab Findings: Abnormal Labs 01/04/21 01/05/21 01/06/21 20:30 11:25 11:28 WBC 15.05 H 11.79 H 11.12 H RBC 2.79 L 2.73 L Hgb 8.1 L D 8.0 L Hct 24.0 L D 24.5 L MPV 11.7 H 12.0 H 11.7 H
[2021-01-07 16:25] VITALS: BP 114/71; PULSE 86; RESP 14; O2SAT 100
[2021-01-07 19:30] VITALS: BP 113/77; PULSE 79; RESP 18; TEMP 36.8
[2021-01-08] MEDS: Acetaminophen 325 MG TAB 650 MG PO (08:47)
[2021-01-08] MEDS: Docusate Sodium 100 MG CAP PO (08:47)
--- NOTE | 2021-01-08 08:57 | DSE_ITS ---
Date of service: 01/08/21 Time of Service: 08:57 DS: Diagnosis Discharge Diagnosis (1) care following vaginal delivery: Status: Acute Asessment and Plan: Stable PP day 3. KH (2) Hematoma of vagina during delivery: Status: Acute Asessment and Plan: 01/08/21: perineum is mildly echymotic but soft to touch and only mildly edematous. appropriate stage of healing.KH (3) Acute blood loss anemia: Status: Acute Asessment and Plan: 01/08/21: No dizziness, able to do her own ADL's. Will begin ferrous sulfate therapy at home. Plan return in 1 week to office for hgb check.KH Discharge Plan Disposition Patient Disposition: HOME Condition: Good Discharge Details Reason For Visit: SROM, LABOR AT TERM Admit Date/Time: 01/04/21 19:30 Admit Provider: Miri Barragan Attending Provider: Miri Barragan Primary Care Provider: Jacque Bell [facility] Course Hospital Course: as documented: OB Labor/ Delivery Information Baby A Delivery Delivery Method: Spontaneaous Presentation: Vertex Vertex Position: Left Occipital Anterior Breech Position: N/A Cord Description-Baby A: 3 Vessels Amniotic Fluid: Clear Estimated Blood Loss: 800 Delivery Outcome: Liveborn Transferred: Remains with Mother Note: Pt arrived fully dilated with mild urges to bear down, category 1 tracing verified and admission procedures completed, pt requested to push in the tub, entered the tub 45 minutes after arrival to unit, water temp 99 degrees and intermittent FHT auscultation done per protocol. over intact perineum, loose nuchal cord reduced overhead, shoulders transverse which delivered easily, vigorous female infant to mother's arms, kept warm with blankets and pouring warm water over blankets while held by mother, pitocin 10 units IM given, Rene placenta intact with 3 VC, then cord clamped, cut by FOB. Bonding time in tub x 30 minutes with nml rubra noted, FOB held baby while mother assisted to bed. Bilateral labial lacerations noted, perineum intact. Right labial lac is superficial, not bleeding, not repaired. Local anesthesia injected to left labia and repair done with 3.0 Vicryl at which time increasing vaginal bleeding observed. Methergine 0.2 mg IM given, fundus firm below umbilicus and bladder not palpable. Source of bleeding identified from laceration on left side of lower vaginal wall but visualization quite difficult and bleeding persistent. Dr. Macias paged, IV access initiated, LR bolus begun and TXA [address] Macias arrived at 2235, additional suturing under further local anesthesia, IV fentanyl given for pain, and use of wall suction to assist with visualization performed, see MD repair note. Left vaginal wall hematoma identified and stable. EBL 600 ml per MD. Pt's BP and pulse remained stable, fundus remains firm and below umbilicus. wt 3470 gms, apgars 8/9. Initial debriefing done with pt and regarding blood loss, diagnosis and treatment measures, will continue to discuss and review with pt/ as needed throughout hospital stay. Excellent family bonding observed. Providers Doctor: Marielos Macias Nurse Colon Therapist: Miri Barragan Nurse: Zayra Loza PP course complicated by anemia and resolving hematoma. Home Meds and New Rx's Prescriptions: No Action prenat.vits,quinton,[id number] Tablet 1 tab PO DAILY RF: 0 ferrous sulfate 325 mg (65 mg iron) tablet,delayed release (DR/EC) 325 mg PO DAILY Qty: 60 RF: 0 Discharge Instructions Instructions: Bleeding (GEN), Vaginal Delivery (GEN) Additional Instructions: Dosage and timing of acetaminophen and ibuprofen reviewed [facility] patient. RX for ferrous sulfate has been sent to her pharmacy prior to today. Care Plan Goals: will return in 1 week for repeat hgb and PP check. Activity:: Activity as Tolerated Equipment/Supplies:: No Equipment Needed Diet:: As Tolerated Discharge Orders Discharge Orders: Discharge Order (Routine); Ordered 01/08/21 Ordered By: Sowmya Tejada OB:DS Summary Summary Vaginal Delivery Method: Spontaneaous Laceration Description: Other (left labia, left lower vaginal wall and floor) Laceration Extension: N/A Contraception Discussed Contraception Discussed: Yes (plans condom use), Gender-Baby A: Female weight: 7 lb 10.401 oz Status at Discharge Functional status at discharge: independent ambulation Overall status at discharge: patient is back to baseline Mental Status: mental status grossly normal Speech and Movement: speech and movement normal Mood: congruent mood Affect: normal affect Exam Physical Exam Vital signs: Temp Pulse Resp BP Pulse Ox 98.3 F 79 18 113/77 100 02/24/21 19:30 01/07/21 19:30 01/07/21 19:30 01/07/21 19:30 01/07/21 16:25 Vital Signs Reviewed: Yes Constitutional Constitutional: no acute distress HEENT Exam HEENT Exam: Normal Respiratory Exam Respiratory Exam: Normal Cardiovascular Exam Cardiovascular Exam: Normal Fundal Exam Fundus: Below Umbilicus and Firm Extremities Exam Extremity Exam: Normal Neurological Exam Neurological Exam: Normal Psychiatric Exam Psychiatric Exam: Normal [facility] Medical History (Updated 01/07/21 @ 14:40 by Sowmya Tejada CNM) Abnormal thyroid stimulating hormone (TSH) level Low lying placenta nos or without hemorrhage, second trimester Family History (Updated 07/08/20 @ 14:29 by Sowmya Gabriel CNM) Maternal Grandmother Breast cancer Mother Hyperlipidemia Father Hypertension Hyperlipidemia Paternal Grandmother Parkinson disease Social History (Updated 06/04/19 @ 11:42 by Julia Escobar NP) Smoking/Tobacco Use Status: Never Smoking risk assessment performed?: Yes current occupation: [employer] Female Reproductive History Menstrual control method: condoms History History 1 Para 0 Hx # Term Pregnancies 0 Multiple births 0 Hx # Pregnancies 0 Ectopic pregnancies 0 AB induced 0 Hx Number of Living Children 0 AB spontaneous 0 DS: Data Vitals/I&O Vitals and I&O: Vital Signs Temperature 98.3 F 01/07/21 19:30 Pulse 79 01/07/21 19:30 Pulse Rhythm Regular 01/07/21 19:30 Respiratory Rate 18 01/07/21 19:30 Respiratory Depth Normal 01/06/21 00:04 Blood Pressure 113/77 01/07/21 19:30 Blood Pressure Mean 89 01/07/21 19:30 Pulse Oximetry 100 01/07/21 16:25 Pain Level 3 01/08/21 08:47 Intake & Output 01/07/21 01/07/21 01/08/21 11:59 23:59 11:59 Other: Urine Color Pale
[2021-01-08 09:00] VITALS: BP 119/83; PULSE 96; RESP 18; TEMP 36.8; O2SAT 97
== END 2021-01-08 12:00 | disposition home or self-care (01) | DRG 806 ==
PROVIDERS: Admitting Provider Advanced Practice Midwife; PCP Nurse Practitioner Family; Visit Provider Advanced Practice Midwife
DX: O72.1 Other immediate postpartum hemorrhage; O71.7 Obstetric hematoma of pelvis; Z37.0 Single live birth; D62 Acute posthemorrhagic anemia; O71.4 Obstetric high vaginal laceration alone; Z3A.39 39 weeks gestation of pregnancy; O99.02 Anemia complicating childbirth; O70.0 First degree perineal laceration during delivery
CPT/HCPCS: 36415; 85027; 86850; 86900; 86901; 99254; U0003; J2210; J2590; J3010

== ENCOUNTER 2022-01-07 01:28 | Outpatient (CLI) | payer OTHER, MEDICAID, SELFPAY ==
[2022-01-07 15:21] LABS: HCT 37.6 % (36.0-46.0); MCH 29.9 pg (27.0-33.0); MCHC 31.9 % (32.0-36.0); MCV 93.8 fL (80-95); MPV 10.4 fL (8.0-11.0); Platelet Count 152 10^3/uL (130-400); RBC 4.01 10^6/uL (3.93-5.22); RDW 14.4 % (11.7-14.6); RDW-SD 50.1 fL; WBC 6.46 10^3/uL (4.4-10.8)
[2022-01-07 15:32] LABS: Glucose,1 Hr (Glucola) 102 mg/dL (80-140)
[2022-01-07 15:46] LABS: FREE T4 0.97 ng/dL (0.76-1.46); TSH 0.51 uIU/mL (0.36-3.74)
== END 2022-01-07 01:29 | disposition home or self-care (01) ==
PROVIDERS: Advanced Practice Midwife; PCP Nurse Practitioner Family; Visit Provider Advanced Practice Midwife
DX: Z34.92 Encounter for supervision of normal pregnancy, unspecified, second trimester (principal); R79.89 Other specified abnormal findings of blood chemistry; Z3A.27 27 weeks gestation of pregnancy
CPT/HCPCS: 36415; 82950; 85027; 84439; 84443

== ENCOUNTER 2022-03-11 19:46 | Outpatient (REF) | payer MEDICAID, SELFPAY ==
[2022-03-11 14:07] LABS: *AMPHETAMINES SCREEN URINE Negative (Negative); *BARBITURATES SCREEN URINE Negative (Negative); *BENZODIAZEPINES SCREEN URINE Negative (Negative); Cannabinoids THC Negative (Negative); Cocaine Screen,Urine Negative (Negative); METHADONE URINE SCREEN Negative (Negative); OPIATES URINE SCREEN Negative (Negative)
[2022-03-11 14:09] LABS: Tricyclic Antidepressants Negative (Negative)
[2022-03-18 10:00] LABS: Buprenorphine Negative ng/mL (Cutoff: 5.0)
== END 2022-03-11 19:47 | disposition home or self-care (01) ==
LOC: LBN 19:46
PROVIDERS: PCP Nurse Practitioner Family; Visit Provider Advanced Practice Midwife
DX: Z34.93 Encounter for supervision of normal pregnancy, unspecified, third trimester (principal); Z36.85 Encounter for antenatal screening for Streptococcus B; Z3A.36 36 weeks gestation of pregnancy
CPT/HCPCS: 80307; 87081

== ENCOUNTER 2022-04-03 04:15 | Inpatient (IN) | payer MEDICAID, SELFPAY ==
[2022-04-03] VITALS (13 sets, daily range): BP systolic 93–164; BP diastolic 52–86; PULSE 59–81; RESP 15–16; TEMP 36.2–38.1; O2SAT 99
--- NOTE | 2022-04-03 05:43 | W.PM.OBHPL1 ---
Date of service: 04/03/22 Time of Service: 04:43 Assessment and Plan Assessment and plan (1) Spontaneous onset of labor: Status: Acute Assessment and plan: Admit to Center. Comfort measures. Covid- 19 test. Precipitous delivery attended by RN at 0442 while I was en route. See delivery note OB-HPI Labor/Delivery History of Present Illness Reason for Visit: rule out labor Chief Complaint: Uterine Contractions; Suspected Rupture of Membranes , Associated Signs and Symptoms of Suspected ROM: labor. DUANE Calculator Estimated Delivery Date Method WG Current Estimate 04/04/22 LMP (Certain) Other Estimates 04/08/22 Ultrasound #1 Delivery Date-Baby A 04/03/22 39w 6d Comments: Nicolasa called at 0240 with a report that she had just awoken with a strong contraction and had some bloody show. She denies ROM. I instructed her to proceed to the center. Her membranes ruptured at home at 0318 before leaving her home. Upon her arrival at the Center at 0415, she was fully dilated with an urge to push. History of Present Expected Delivery Route/Plan - CNM FOB/ - Niko Baumann BB yes to circ Interested in a tub again GBS negative Specific Issues/Plan 1. Nicolasa and her partner decline covid vaccine- had covid-19 infection 08/03/21 1a. Discussed 32 week US and testing. Prefers US in [place]: 02/12/22-35th percentile, SERGIO 11.1 1b. If 32 wk growth scan is WNL, pt desires to do daily kick counts, NST if DFM or fundal ht lags. 2. Tandem nursing- weaning 12/14/21. Weaning complete as of 01/21/22. 3. Low TSH in first trimester previous preg - repeat TSH @ 27 wks=nml at 0.51, T4=0.97 4. Prefers telehealth visits until after 21 week anatomy scan at [facility], labs at [facility], 5. RPR drawn at [facility], syphilis antibody drawn @ 27 wks and negative PFSH All Active Problems (Updated 04/03/22 @ 05:44 by Sowmya Gabriel CNM) Spontaneous onset of labor (Acute) Term of male (Acute) COVID-19 affecting in first trimester (Acute) Medical History (Updated 04/03/22 @ 05:44 by Sowmya Gabriel CNM) Abnormal thyroid stimulating hormone (TSH) level During - repeat WNL Acute blood loss anemia Hematoma of vagina during delivery Family History (Updated 07/08/20 @ 14:29 by Sowmya Gabriel CNM) Maternal Grandmother Breast cancer Mother Hyperlipidemia Father Hypertension Hyperlipidemia Paternal Grandmother Parkinson disease Social History (Updated 06/04/19 @ 11:42 by Julia Escobar NP) Smoking/Tobacco Use Status: Never Smoking risk assessment performed?: Yes current occupation: [employer] Female Reproductive History Menstrual control method: condoms History History 2 Para 1 Hx # Term Pregnancies 1 Multiple births 0 Hx # Pregnancies 0 Ectopic pregnancies 0 AB induced 0 Hx Number of Living Children 1 AB spontaneous 0 Past Pregnancies Del. Date GA/Weeks # Outcome Route Wgt Sex Labor Lgth Anesthesia Location Prov Complic 01/04/21 39 No Successful vaginal 7 lb 10.4 oz Female 4 hrs 35 min TU Irizarry; MD Rodri hemorrhage other Delivery Date: 01/04/21 Last Updated by: TU Ramirez; Tub . bilateral albial lacerations with repair of left labia, left lower vaginal wall and floor. EBL from laceration 800cc. Treated with methergine and TXA Meds Allergies and Home Medications Allergies Allergy/AdvReac Type Severity Reaction Status Date / Time gluten AdvReac Mild Unverified 04/02/22 11:17 Home Medications Medication Instructions Recorded Confirmed Type prenat.vits,quinton,[id number]-ygej-kdecs 1 tab PO DAILY 06/20/20 04/02/22 History ferrous sulfate 324 mg (65 mg 324 mg PO DAILY 12/14/21 04/02/22 History iron) tablet,delayed release Exam Physical Exam Vital signs: Pulse BP 72 134/86 04/03/22 05:31 04/03/22 05:31 Detailed Labor and Delivery Exam Dilation: 10 Cochran Score: Cervical Points Exam 0 1 2 3 Dilation Closed 1-2cm 3-4 cm 5-6cm Effacement 0-30% 40-50% 60-70% 80% Consistency Firm Medium Soft Station -3 -2 -1,0 +1,+2 Position Posterior Mid Anterior Monitor Mode: External Contraction Frequency(min): every 3 minutes Contraction Duration(sec): 60 Contraction Intensity: Strong Fetus A Heart Rate Baseline: 140 Monitor Accelerations: 15 X 15 Monitor Decelerations: None Variability: Moderate (6-25 BPM) Presentation: Vertex Categories: Category I Date of Membrane Rupture: 04/03/22 Time of Membrane Rupture: 03:18 Results Results Group Beta Strep: Negative Risk Assessment Risk for Shoulder Dystocia Historical/Initial OB: NEGATIVE FOR: Pelvic Abnormality, Pre- BMI>30, Previous Shoulder Dystocia or Previous Macrosomia Delivery Plan @ 36wks: spont labor, Risk for Pre-Eclampsia Yes, if one or more: NEGATIVE FOR: Hx Pre-E/Gest HTN, Chronic HTN, Multiple Gestation, Pre-gestational DM, Renal Disease, Systemic Lupus or APA Syndrome Yes, if 2 or more: NEGATIVE FOR: Age>= 35 yrs, >10yr btwn pregnancies, BMI>30, ethinicty, Mother/Sister w/ Pre-E or Previous IUGR Risk for Post- Hemorrhage Initial: POSITIVE FOR: Previous PPH (R/T laceration and hematoma. EBL 800cc. Treatment with methergine and TXA.); NEGATIVE FOR: Multiple Gestation, Known Clotting Deficiency, Grand Multiparity or Anticoagulation Counseled re: Active Management: Yes Risks Reviewed Risks Reviewed Upon Admission: Yes
[2022-04-03] MEDS: Ibuprofen 600 MG TAB PO (05:49)
[2022-04-03 05:50] LABS: Source Nasal/Nares
[2022-04-03] MEDS: Acetaminophen 325 MG TAB 650 MG PO (05:50)
--- NOTE | 2022-04-03 05:53 | OBVDS_ITS ---
Date of service: 04/03/22 Time of Service: 04:53 OB Labor/ Delivery Information Baby A Delivery Delivery Method: Spontaneaous Presentation: Vertex Cephalic Position: Vertex Amniotic Fluid: Clear Estimated Blood Loss: 250 Delivery Outcome: Liveborn Complications: none Transferred: Remains with Mother Providers Nurse Customer Success Specialist: Sowmya Gabriel Nurse: Yolanda Finnegan Nurse: Yola Huber Labor/Delivery Information Number of Babies in Womb: 1 Steroids Given: None Reason Steroids Not Administered: N/A Group Beta Strep: Negative Antibiotics Administered: No Rubella Status: Immune Blood Type: A+ Varicella Immunity: Immune Maternal Complications: Precipitous Labor(<3hrs) Shoulder Dystocia: No Note: SROM occurred at home at 0318. Nicolasa arrived at the center at 0415 and was fully dilated with an urge to push. FHTs 140 in second stage. Spontaneous delivery of male delivered with mother in hands and knees position. was attended by RN while I was en route. The baby was placed on mother's abdomen and dried and stimulated. Spontaneous cry. Cord was clamped and cut by the baby's father. The placenta was undelivered upon my arrival. It delivered spontaneously at 0449 and appears to by intact with a three vessel cord. Pitocin 10 units IM was administered after delivery of the placenta. The perineum was inspected and there were two bilateral superficial vaginal abrasions which were not bleeding and were not repaired. The baby did breastfeed. After delivery, M other and baby and father of the baby were stable and bonding well in the delivery room and there were no complications. Stages of Labor Onset of Labor Date: 04/03/22 Onset of Labor Time: 04:35 Complete Dilatation Date: 04/03/22 Complete Dilatation Time: 04:35 Labor - Stage 1 Duration: 0 minutes ROM Baby A: 04/03/22 ROM Baby A: 03:18 ROM Total Time- Baby A: [id number] Delivery Date-Baby A: 04/03/22 Infant Delivery Time-Baby A: 04:42 Labor Stage 2 Duration: 7 minutes Placenta Delivery Date-Baby A: 04/03/22 Placenta Delivery Time-Baby A: 04:49 Labor-Stage 3 Duration: 7 minutes Total Length of Labor-Baby A: 7 minutes Placenta Status: Delivered Baby A Infant Gender: Male Gestational Status: Term (39-41.6 wks) Gestational Age in Weeks/Days: 39 Weeks and 6 Days Score-1 Minute Interval(Baby A) Heart Rate-1 minute: 100 BPM or Greater Respiratory Effort- 1 minute: Slow Respiration/Weak Cry Muscle Tone-1 minute: Active Movement Reflex Response-1 minute: Prompt Response Color-1 minute: Bluish Hands or Feet Total Score-1 minute: 8 Score-5 Minute Interval(Baby A) Heart Rate- 5 minute: 100 BPM or Greater Respiratory Effort-5 minute: Spontaneous/Strong Cry Muscle Tone-5 minute: Active Movement Reflex Response-5 minute: Prompt Response Color-5 minute: Bluish Hands or Feet Total Score- 5 minute: 9
--- NOTE | 2022-04-03 06:37 | NUR.NOTE ---
Nursing Note: Pt arrived at 0410 after waking up with cxs's after 0200. SROM at home at 0318, clear fluid. Pt was comlpete upon SVE @0425 +2-+3 station. Pt and hands and knees for delivery recruiter at 0442. Nery CNM arrived for delivery of placenta @0449, spontaneous,intact. 10 units pitocin given IM per CNm after delivery of placenta.Bilateral vaginal abrasions not needing repair by CNM. Ice Applied. Tylenol and Motrin given see JAN. Baby BF well at bonding. Both mom and baby stable.
[2022-04-03 06:39] LABS: COVID-19 PCR Negative (Negative)
[2022-04-03 06:41] LABS: HCT 36.3 % (36.0-46.0); HGB 11.9 g/dL (11.2-15.7); MCH 29.1 pg (27.0-33.0); MCHC 32.8 % (32.0-36.0); MCV 89 fL (80-95); MPV 11.9 fL (8.0-11.0); Platelet Count 134 10^3/uL (130-400); RBC 4.09 10^6/uL (3.93-5.22); RDW 14.5 % (11.7-14.6); RDW-SD 46.6 fL; WBC 13.64 10^3/uL (4.4-10.8)
[2022-04-04 00:44] VITALS: BP 110/64; PULSE 65; RESP 17; TEMP 36.8; O2SAT 99
[2022-04-04 08:31] VITALS: BP 108/62; PULSE 62; RESP 16; TEMP 36.8; O2SAT 99
--- NOTE | 2022-04-04 09:19 | W.PM.OBDISCH ---
Date of service: 04/04/22 Time of Service: 08:19 DS: Diagnosis Discharge Diagnosis (1) Term of male : Status: Acute Asessment and Plan: Caring for baby independently. Pain is managed well with oral analgesics. Voiding without difficulty. well. A - stable mother and baby , Post day 1 P - Discharge to home today. Routine post instructions. [facility] Discharge Plan Discharge Details Reason For Visit: rule out labor Admit Date/Time: 04/03/22 04:20 Admit Provider: Sowmya Gabriel Attending Provider: Sowmya Gabriel Primary Care Provider: Jacque Bell Home Meds and New Rx's Prescriptions: No Action prenat.vits,quinton,[id number] Tablet 1 tab PO DAILY ferrous sulfate 324 mg (65 mg iron) tablet,delayed release (DR/EC) 324 mg PO DAILY Discharge Instructions Stand Alone Forms: BC Instructions, BC Post Vaginal Deliver Activity:: Activity as Tolerated Activity:: Activity as Tolerated Equipment/Supplies:: No Equipment Needed Discharge Data Discharge Physician: Sowmya Gabriel OB:DS Summary Summary Vaginal Delivery Method: Spontaneaous Laceration Description: Other Contraception Discussed Contraception Discussed: Yes Contraceptive Plan: Undecided, [place] Infant Gender-Baby A: Male Status at Discharge Functional status at discharge: independent ambulation Overall status at discharge: patient is back to baseline Mental Status: mental status grossly normal Speech and Movement: speech and movement normal Mood: congruent mood Affect: normal affect Exam Physical Exam Vital signs: Temp Pulse Resp BP Pulse Ox 98.2 F 62 16 108/62 99 04/04/22 08:31 04/04/22 08:31 04/04/22 08:31 04/04/22 08:31 04/04/22 08:31 Respiratory Exam Respiratory Exam: Normal Cardiovascular Exam Cardiovascular Exam: Normal Fundal Exam Fundus: Below Umbilicus Extremities Exam Extremity Exam: Normal Psychiatric Exam Psychiatric Exam: Normal PFSH All Active Problems (Updated 04/03/22 @ 05:44 by Sowmya Gabriel CNM) Spontaneous onset of labor (Acute) Term of male (Acute) COVID-19 affecting in first trimester (Acute) Medical History (Updated 04/03/22 @ 05:44 by Sowmya Mulkern, CNM) Abnormal thyroid stimulating hormone (TSH) level During - repeat WNL Acute blood loss anemia Hematoma of vagina during delivery Family History (Updated 07/08/20 @ 14:29 by Sowmya Gabriel CNM) Maternal Grandmother Breast cancer Mother Hyperlipidemia Father Hypertension Hyperlipidemia Paternal Grandmother Parkinson disease Social History (Updated 06/04/19 @ 11:42 by Julia Escobar NP) Smoking/Tobacco Use Status: Never Smoking risk assessment performed?: Yes current occupation: [employer] Female Reproductive History Menstrual control method: condoms History History 2 Para 1 Hx # Term Pregnancies 1 Multiple births 0 Hx # Pregnancies 0 Ectopic pregnancies 0 AB induced 0 Hx Number of Living Children 1 AB spontaneous 0 Past Pregnancies Del. Date GA/Weeks # Outcome Route Wgt Sex Labor Lgth Anesthesia Location Prov Complic 01/04/21 39 No Successful vaginal 7 lb 10.4 oz Female 4 hrs 35 min TU Irizarry; MD Rodri hemorrhage other Delivery Date: 01/04/21 Last Updated by: TU Ramirez; Tub . bilateral albial lacerations with repair of left labia, left lower vaginal wall and floor. EBL from laceration 800cc. Treated with methergine and TXA DS: Data Vitals/I&O Vitals and I&O: Vital Signs Temperature 98.2 F 04/04/22 08:31 Pulse 62 04/04/22 08:31 Pulse Rhythm Regular 04/04/22 08:31 Respiratory Rate 16 04/04/22 08:31 Respiratory Depth Normal 04/04/22 08:31 Blood Pressure 108/62 04/04/22 08:31 Blood Pressure Mean 77 04/04/22 08:31 Pulse Oximetry 99 04/04/22 08:31 Pain Level 2 04/03/22 05:50 Intake & Output 04/03/22 04/03/22 04/04/22 11:59 23:59 11:59 Output Total 700 / 1700 1000 / 1700 Balance -700 / -1700 -1000 / -1700 Weight 135 lb Output: Urine 700 / 1700 1000 / 1700 Other: Urine Color Yellow Yellow
== END 2022-04-04 10:05 | disposition home or self-care (01) | DRG 807 ==
PROVIDERS: Admitting Provider Advanced Practice Midwife; PCP Nurse Practitioner Family; Visit Provider Advanced Practice Midwife
DX: O62.3 Precipitate labor (principal); Z37.0 Single live birth; Z3A.39 39 weeks gestation of pregnancy; O70.0 First degree perineal laceration during delivery
CPT/HCPCS: 36415; 85027; 86850; 86900; 86901; 87635; J3490

== ENCOUNTER 2023-03-29 10:49 | Outpatient (REF) | payer MEDICAID, SELFPAY | END 2023-03-29 10:50 | disposition home or self-care (01) | LOC: LBN 10:49 | PROVIDERS: Visit Provider Obstetrics & Gynecology Gynecology | DX: O26.891 Other specified pregnancy related conditions, first trimester (principal); R30.0 Dysuria; Z3A.11 11 weeks gestation of pregnancy | CPT/HCPCS: 87086 ==

== ENCOUNTER 2023-03-31 03:15 | Outpatient (CLI) | payer MEDICAID, SELFPAY ==
[2023-03-31 15:23] LABS: Abs Immature Grans 0.02 10^3/uL (0.0-0.06); Absolute Basophil Count 0.03 10^3/uL (0.0-0.2); Absolute Eosinophil Count 0.02 10^3/uL (0.0-0.7); Absolute Lymphocyte Count 1.45 10^3/uL (1.2-3.4); Absolute Neutrophil Count 4.94 10^3/uL (1.2-6.7); Basophils % 0.4; Eosinophils % 0.3; HCT 40.2 % (36.0-46.0); HGB 13.3 g/dL (11.2-15.7); Immature Grans % 0.3; Lymphocytes % 21.1; MCH 28.7 pg (27.0-33.0); MCHC 33.1 % (32.0-36.0); MCV 87 fL (80-95); MPV 10.5 fL (8.0-11.0); Monocytes % 5.8; Neutrophils % 72.1; Platelet Count 153 10^3/uL (130-400); RBC 4.63 10^6/uL (3.93-5.22); RDW 14.3 % (11.7-14.6); RDW-SD 46.1 fL; WBC 6.86 10^3/uL (4.4-10.8)
[2023-04-03 12:59] LABS: HIV-1/2 Ag & Ab Screen Negative (Negative)
[2023-04-04 10:49] LABS: Hepatitis B Surface Ag Negative (Negative)
[2023-04-04 11:04] LABS: Hepatitis C Ab w Rflx HCV PCR Negative (Negative)
[2023-04-04 13:58] LABS: Varicella IgG Antibody Positive (See Note)
[2023-04-04 14:02] LABS: Rubella IgG Ab (UVM) Positive (See Note)
[2023-04-04 20:38] LABS: Syphilis IgG w/Reflex Nonreactive (Nonreactive)
== END 2023-03-31 03:16 | disposition home or self-care (01) ==
LOC: LBO 03:15
PROVIDERS: Advanced Practice Midwife; Visit Provider Advanced Practice Midwife
DX: Z34.91 Encounter for supervision of normal pregnancy, unspecified, first trimester (principal); Z3A.12 12 weeks gestation of pregnancy
CPT/HCPCS: 36415; 86787; 86803; 86850; 86900; 86901; 87340; 87389; 85025; 86762; 86780

== ENCOUNTER 2023-03-31 15:18 | Outpatient (REF) | payer MEDICAID, SELFPAY ==
[2023-03-31 17:27] LABS: *AMPHETAMINES SCREEN URINE Negative (Negative); *BARBITURATES SCREEN URINE Negative (Negative); *BENZODIAZEPINES SCREEN URINE Negative (Negative); Cannabinoids THC Negative (Negative); Cocaine Screen,Urine Negative (Negative); METHADONE URINE SCREEN Negative (Negative); OPIATES URINE SCREEN Negative (Negative)
[2023-03-31 17:28] LABS: Tricyclic Antidepressants Negative (Negative)
[2023-04-08 08:42] LABS: Buprenorphine Negative ng/mL (Cutoff: 5.0); Norbuprenorphine Negative ng/mL (Cutoff: 2.5)
== END 2023-03-31 15:19 | disposition home or self-care (01) ==
LOC: LBN 15:18
PROVIDERS: Visit Provider Advanced Practice Midwife
DX: O26.891 Other specified pregnancy related conditions, first trimester (principal); R10.31 Right lower quadrant pain; R30.0 Dysuria; R31.9 Hematuria, unspecified; Z3A.12 12 weeks gestation of pregnancy
CPT/HCPCS: 80307; 80348; 87086

== ENCOUNTER 2023-06-28 03:34 | Outpatient (CLI) | payer MEDICAID, SELFPAY ==
[2023-06-28 11:54] LABS: Panorama Kit Sent via Fed Ex
== END 2023-06-28 03:35 | disposition home or self-care (01) ==
LOC: LBO 03:34
PROVIDERS: Visit Provider Advanced Practice Midwife
DX: Z34.92 Encounter for supervision of normal pregnancy, unspecified, second trimester (principal)
CPT/HCPCS: 36415

== ENCOUNTER 2023-06-28 11:52 | Outpatient (REF) | payer MEDICAID, SELFPAY ==
[2023-06-29 13:29] LABS: Chlamydia Result Negative (Negative); GC Result Negative (Negative)
== END 2023-06-28 11:53 | disposition home or self-care (01) ==
LOC: LBN 11:52
PROVIDERS: Advanced Practice Midwife; Visit Provider Advanced Practice Midwife
DX: Z34.92 Encounter for supervision of normal pregnancy, unspecified, second trimester (principal); Z3A.25 25 weeks gestation of pregnancy; Z11.3 Encounter for screening for infections with a predominantly sexual mode of transmission
CPT/HCPCS: 87491; 87591

== ENCOUNTER 2023-09-15 09:45 | Outpatient (REF) | payer MEDICAID, SELFPAY ==
[2023-09-15 11:53] LABS: *AMPHETAMINES SCREEN URINE Negative (Negative); *BARBITURATES SCREEN URINE Negative (Negative); *BENZODIAZEPINES SCREEN URINE Negative (Negative); Cannabinoids THC Negative (Negative); Cocaine Screen,Urine Negative (Negative); METHADONE URINE SCREEN Negative (Negative); OPIATES URINE SCREEN Negative (Negative)
[2023-09-15 12:06] LABS: Tricyclic Antidepressants Negative (Negative)
[2023-09-21 07:53] LABS: Buprenorphine Negative ng/mL (Cutoff: 5.0)
== END 2023-09-15 09:46 | disposition home or self-care (01) ==
LOC: LBN 09:45
PROVIDERS: PCP Advanced Practice Midwife; Visit Provider Advanced Practice Midwife
DX: Z34.93 Encounter for supervision of normal pregnancy, unspecified, third trimester (principal); Z3A.36 36 weeks gestation of pregnancy
CPT/HCPCS: 80307; 80348; 87081

== ENCOUNTER 2023-09-30 18:32 | Inpatient (IN) | payer MEDICAID, SELFPAY ==
--- NOTE | 2023-09-30 20:25 | W.PM.OBHPL1 ---
Date of service: 09/30/23 Time of Service: 20:25 Assessment and Plan Assessment and plan (1) Normal labor: Status: Acute Assessment and plan: 1. Admit following NST and VE 2. Discussed IV access, she prefer to avoid unless indicated and then agrees to insertion if needed. 3. CBC and type and screen ordered 4. support labor, prefers water if possible 5. NST is reactive and reassuring will change to intermittent doppler for remainder of labor unless other interventions are necessary 6. Dr. Smith had been notified earlier today that patient might be in early labor, she declined notification of patient arrival but to be notified only if needed. 7. Expect NVD. OB-HPI Labor/Delivery History of Present Illness Reason for Visit: labor Chief Complaint: Uterine Contractions. DUANE Calculator Estimated Delivery Date Method Current WG Current Estimate 10/12/23 LMP (Certain) 38w 2d Other Estimates 10/18/23 Ultrasound #1 37w 3d Comments: Nicolasa presents with her , Niko, due to regular contractions today since VE done in office. She has had some bloody show. Baby has been active until past hour. Denies ROM. Was 3-4cm in office today per patient. CNM stripped membranes. Currently doing very well with contractions. Is hoping for waterbirth and low intervention again this time as she had last . Is planning to breast feed. Expecting a baby girl. History of Present Expected Delivery Route/Plan - CNM FOB - Niko Baumann (3rd baby) Would like to use the tub GBS negative Specific Issues/Plan 1. Right flank pain and hematuria in 1st trimester- renal US at [place] scheduled-WNL 2. Hx extensive vaginal lac's causing 800 EBL 1st delivery, precip labor with 250 EBL @ 2nd 3. Desires anatomy scan at [place], scheduled for 06/08/23 3a. Marginal cord insertion - 32 wk US at [facility]: 43rd percentile, SERGIO=8.4 3b. EICF - level 2 US offered, Panorama drawn - neg 4. Left sciatica- Referred to PT at [facility], may try chiropractic also. 5. Left labial varicosities - relief methods discussed. 6. 1 hour and CBC scanned in from [facility], WNL, plt 144 Assessment: History Reviewed & Current Informed Consent Informed Consent: Risk,Benefits,Alternatives Discussed and Other (declines IV access now but agrees to one if medically necessary. KH) Review of Systems All systems reviewed & are unremarkable except as noted in HPI and below Genitourinary Comments: old blood noted by patient Musculoskeletal Comments: regular uterine contractions moderate to strong on palpation PFSH All Active Problems (Updated 09/30/23 @ 20:32 by Sowmya Tejada CNM) Normal labor (Acute) Echogenic intracardiac focus of fetus on ultrasound (Acute) Marginal insertion of umbilical cord affecting management of mother (Acute) Left sided sciatica (Acute) Hematuria (Acute) Right flank pain (Acute) (Acute) Medical History Abnormal thyroid stimulating hormone (TSH) level During - repeat WNL Family History Maternal Grandmother Breast cancer Mother Hyperlipidemia Father Hypertension Hyperlipidemia Kidney stone Paternal Grandmother Parkinson disease Social History Smoking/Tobacco Use Status: Never Smoking risk assessment performed?: Yes Housing: apartment current occupation: [employer] Female Reproductive History Menstrual control method: condoms History History 3 Para 2 Hx # Term Pregnancies 2 Multiple births 0 Hx # Pregnancies 0 Ectopic pregnancies 0 AB induced 0 Hx Number of Living Children 2 AB spontaneous 0 Past Pregnancies Del. Date GA/Weeks # Preg Succ Route Wgt Sex Labor Lgth Anesthesia Location Prov Complic 01/04/21 39 No vaginal 7 lb 10.4 oz Female 4 hrs 35 min [facility]; MD Rodri hemorrhage other 04/03/22 39 No vaginal Male 1 hour 31 min, (from ROM to delivery of babe) [facility] Delivery Date: 01/04/21 Last Updated by: TU Ramirez; Tub . bilateral labial lacerations with repair of left labia, left lower vaginal wall and floor. EBL from laceration 800cc. Treated with methergine and TXA Delivery Date: 04/03/22 Last Updated by: Sowmya Gabriel CNM Jefferson Glez Delivered upon arrival by RN. Meds Allergies and Home Medications Allergies Allergy/AdvReac Type Severity Reaction Status Date / Time gluten AdvReac Mild Unverified 09/30/23 20:31 Home Medications Medication Instructions Recorded Confirmed Type prenat.vits,quinton,[id number] 1 tab PO DAILY 06/20/20 09/30/23 History Exam Physical Exam Narrative: Vital signs pending at this time. KH Constitutional Constitutional: no acute distress and average body habitus Detailed Labor and Delivery Exam Dilation: 6 Effacement (%): 90 station: -1 Position: ELMO Cervix position: posterior Consistency: soft Acevedo Score: Cervical Points Exam 0 1 2 3 Dilation Closed 1-2cm 3-4 cm 5-6cm Effacement 0-30% 40-50% 60-70% 80% Consistency Firm Medium Soft Station -3 -2 -1,0 +1,+2 Position Posterior Mid Anterior ACEVEDO Score(Cervical Ripeness Score): 10 Amniotic Membrane Status: Intact Monitor Mode: External Contraction Frequency(min): 3-4 Contraction Duration(sec): 60-90 Contraction Intensity: Moderate/Strong Fetus A Heart Rate Baseline: 130 Monitor Accelerations: 10 X 10 Monitor Decelerations: None Variability: Moderate (6-25 BPM) Categories: Category I HEENT Exam HEENT Exam: Normal Neck Exam Neck Exam: Normal (visual exam) Chest/Brest/Axilla Exam Chest Exam: Normal Breast Exam Breast Exam: Not Done Respiratory Exam Respiratory Exam: Normal Cardiovascular Exam Cardiovascular Exam: Normal Abdominal Exam Abdominal Exam: Normal (size equals dates) Rectal Exam Rectal Exam: Not Done Exam Exam: Normal Extremities Exam Extremities Exam: Normal Back/Spine/Pelvis Exam Back Exam: Not Done Pelvis Adequate: Yes Skin Exam Skin Exam: Normal Neurological Exam Neurological Exam: Normal Psychiatric Exam Psychiatric Exam: Normal Results Results Group Beta Strep: Negative Blood Type: A+ Rubella Status: Immune Varicella Immunity: Immune Lab Results: HIV neg, Hep B and C neg, Syphilis neg, GC CT neg, 1 hour 113, declined genetic screening, panorama cfDNA obtained due to echogenic foci in heart, Low Risk, female Risk Assessment Risk for Shoulder Dystocia Historical/Initial OB: NEGATIVE FOR: Pelvic Abnormality, Pre- BMI>30, Previous Shoulder Dystocia or Previous Macrosomia Delivery Plan @ 36wks: spont labor, Delivery Plan @ 40 wks: NVD SHERINE Risk for Pre-Eclampsia Yes, if one or more: NEGATIVE FOR: Hx Pre-E/Gest HTN, Chronic HTN, Multiple Gestation, Pre-gestational DM, Renal Disease, Systemic Lupus or APA Syndrome Yes, if 2 or more: NEGATIVE FOR: Age>= 35 yrs, >10yr btwn pregnancies, BMI>30, ethinicty, Mother/Sister w/ Pre-E or Previous IUGR Risk for Post- Hemorrhage Initial: POSITIVE FOR: Previous PPH (R/T laceration and hematoma. EBL 800cc. Treatment with methergine and TXA.); NEGATIVE FOR: Multiple Gestation, Known Clotting Deficiency, Grand Multiparity or Anticoagulation 40 Weeks: NEGATIVE FOR: Anemia, hgb<10, Low platelets (thrombocytopenia), Gestation HTN or Pre-E, Polyhydraminios or EFW>4500gms Counseled re: Active Management: Yes Risks Reviewed Risks Reviewed Upon Admission: Yes
[2023-09-30 20:45] VITALS: BP 108/65; PULSE 79; RESP 17; TEMP 37.1; O2SAT 99
[2023-09-30 21:14] LABS: HCT 36.2 % (36.0-46.0); HGB 12.2 g/dL (11.2-15.7); MCH 29.9 pg (27.0-33.0); MCHC 33.7 % (32.0-36.0); MCV 89 fL (80-95); MPV 10.8 fL (8.0-11.0); Platelet Count 147 10^3/uL (130-400); RBC 4.08 10^6/uL (3.93-5.22); RDW 15.6 % (11.7-14.6); RDW-SD 51.1 fL; WBC 11.17 10^3/uL (4.4-10.8)
--- NOTE | 2023-09-30 23:06 | W.PM.OBNL1 ---
Date of service: 09/30/23 Time of Service: 23:07 Informed Consent Informed Consent: Risk,Benefits,Alternatives Discussed and Other (declines IV access now but agrees to one if medically necessary. SHERINE) Contractions Monitor Mode: Palpation Contraction Frequency(min): irregular Contraction Duration(sec): 60 Intensity: Moderate Fetus A Monitor: Doppler Assessment Note: FHR has been within normal ranges by doppler. Assessment and Plan Assessment and plan (1) Irregular uterine contractions: Status: Acute Assessment and plan: 1. Nicolasa reports need for nap, states this is so different for her as she feels fine and is not having contractions that would make her come in for labor. 2. Will give 4 hour nap time and reassess. SHERINE Objective Abnormal lab results 09/30/23 Range/Units 21:03 WBC 11.17 H (4.4-10.8) 10^3/uL RDW 15.6 H (11.7-14.6) % Temp Pulse Resp BP Pulse Ox 98.8 F 79 17 108/65 99 09/30/23 20:45 09/30/23 20:45 09/30/23 20:45 09/30/23 20:45 09/30/23 20:45 Laboratory Results WBC 11.17 10^3/uL (4.4-10.8) H 09/30/23 21:03 RBC 4.08 10^6/uL (3.93-5.22) 09/30/23 21:03 Hgb 12.2 g/dL (11.2-15.7) 09/30/23 21:03 Hct 36.2 % (36.0-46.0) 09/30/23 21:03 MCV 89 fL (80-95) 09/30/23 21:03 MCH 29.9 pg (27.0-33.0) 09/30/23 21:03 MCHC 33.7 % (32.0-36.0) 09/30/23 21:03 RDW 15.6 % (11.7-14.6) H 09/30/23 21:03 Plt Count 147 10^3/uL (130-400) 09/30/23 21: MPV 10.8 fL (8.0-11.0) 09/30/23 21:03 Patient ABO/Rh A Positive 09/30/23 21:03 Antibody Screen NEGATIVE 09/30/23 21:03 Vital Signs Reviewed: Yes Subjective Interval history since last seen: Nicolasa is feeling tired and not in active labor. Will give period of rest as contractions have spaced out and feel less intense. She had had membranes stripped this afternoon and had regular contractions for many hours. Took shower and felt stronger contractions but then got out of shower and felt tired and wants to nap now. She would like to sleep for a period of time and then reassess. Will allow for VS and FHR to be every 4 hours. KH Results Hemoglobin/Hematocrit: Hgb 12.2 g/dL (11.2-15.7) 09/30/23 21:03 Hct 36.2 % (36.0-46.0) 09/30/23 21:03 Abnormal Lab Findings: Abnormal Labs 09/30/23 21: WBC 11.17 H RDW 15.6 H
[2023-10-01] VITALS (14 sets, daily range): BP systolic 86–123; BP diastolic 50–84; PULSE 65–87; RESP 16–18; TEMP 36.7–36.9; O2SAT 99–100
--- NOTE | 2023-10-01 02:47 | W.PM.OBNL1 ---
Date of service: 10/01/23 Time of Service: 02:47 Informed Consent Informed Consent: Risk,Benefits,Alternatives Discussed and Other (declines IV access now but agrees to one if medically necessary. SHERINE) Pelvic Exam Dilation: 6 Effacement (%): 90 station: -1 Position: ELMO Cervix Position: posterior Consistency: soft BISHOPS Score(Cervical Ripeness Score): 10 Contractions Monitor Mode: External Contraction Frequency(min): irregular Contraction Duration(sec): 60-90 Intensity: Mild/Moderate Fetus A Monitor: External (US) Heart Rate Baseline: 145 Presentation: Cephalic Variability: Moderate (6-25 BPM) Categories: Category I Accelerations: 15 X 15 Decelerations: None Amniotic Membrane Status: Ruptured Rupture Method: Artifical Amniotic Fluid: Clear (positive bloody show from exam as well) Amount: small amount Date of Membrane Rupture: 10/01/23 Time of Membrane Rupture: 02:36 Assessment and Plan Assessment and plan (1) Irregular uterine contractions: Status: Acute Assessment and plan: 1. Due to advanced cervical dilation, history of <2hr labor and , living remote from hospital, patient prefers AROM at this time vs continued expectant management as her contractions have become irregular. 2. We discussed risks and benefits to AROM as well as alternatives of pitocin or expectant management. She understands that if not in active labor in a few hours that pitocin augmenation may be required. Nicolasa is not comfortable with going home with advanced dilation and I agree with her. 3. AROM for small amount of clear fluid at 0236. Bloody show noted with exam. 4. Will reassess in 2 hours or prn. SHERINE Objective Abnormal lab results 09/30/23 Range/Units 21:03 WBC 11.17 H (4.4-10.8) 10^3/uL RDW 15.6 H (11.7-14.6) % Temp Pulse Resp BP Pulse Ox 98.8 F 87 17 120/74 99 09/30/23 20:45 10/01/23 02:42 09/30/23 20:45 10/01/23 02:42 09/30/23 20:45 Laboratory Results WBC 11.17 10^3/uL (4.4-10.8) H 09/30/23 21:03 RBC 4.08 10^6/uL (3.93-5.22) 11/17/23 21:03 Hgb 12.2 g/dL (11.2-15.7) 09/30/23 21: Hct 36.2 % (36.0-46.0) 09/30/23 21: MCV 89 fL (80-95) 09/30/23 21:03 MCH 29.9 pg (27.0-33.0) 09/30/23 21: MCHC 33.7 % (32.0-36.0) 09/30/23: RDW 15.6 % (11.7-14.6) H 09/30/23 21: Plt Count 147 10^3/uL (130-400) 09/30/23 21: MPV 10.8 fL (8.0-11.0) 09/30/23 21: Patient ABO/Rh A Positive 09/30/23 21: Antibody Screen NEGATIVE 09/30/23 21: Subjective Interval history since last seen: Nicolasa woke and desired AROM due to advanced dilation but not in active labor. She is aware of risks and benefits and if not in active labor in a few hours we should consider pitocin augmentation. KH Results Hemoglobin/Hematocrit: Hgb 12.2 g/dL (11.2-15.7) 09/30/23 21: Hct 36.2 % (36.0-46.0) 09/30/23 21:03 Abnormal Lab Findings: Abnormal Labs 09/30/23 21: WBC 11.17 H RDW 15.6 H
--- NOTE | 2023-10-01 05:08 | W.OBDELIVERY ---
Date of service: 10/01/23 Time of Service: 05:08 OB Labor/ Delivery Information Baby A Delivery Delivery Method: Spontaneaous Presentation: Cephalic Cephalic Position: Vertex Vertex Position: Left Occipital Anterior Cord Description-Baby A: 3 Vessels and Clamped/Cut (after 5 minutes of delayed cord clamping) Amniotic Fluid: Clear Estimated Blood Loss: 200 Delivery Outcome: Liveborn Infant Complications: none at delivery noted Infant Transferred: Remains with Mother Note: Nicolasa presented in the evening of 09/30/23 due to feeling a few contractions after VE in office today where she was 3-4cm. She reports that she had some bloody discharge since VE and due to last being precipitous she presented for assessment. VE on arrival with intact membranes. She had contractions regularly for a couple of hours and then they became irregular and she felt like she needed a nap. FHR tracing was reassuring with baseline 140 and doppler checks 130-140's and decision was made to allow for 4 hour nap. Nicolasa requested VE and AROM to augment labor at approximately 0230 and AROM was performed at 0240 by CNM for small amount of fluid. She rested again but at 0340 had a larger gush of fluid and active contractions began. She requested water and there was no contraindication. She was positioned in the tub and began to have involuntary urge to push 10 cm at 0415 and live female delivered ELMO over intact perineum at 0421. Baby was brought up to Mother's chest and scores were 8 and 9. Cord began to jamaal and clamp was placed at 5 minutes of life. Nicolasa preferred to remain in tub for of placenta, which occurred at 0442, intact. Baby was given to Niko to hold and Nicolasa moved to bed for further assessment. She had minimal bleeding at and time of placenta and perineum and vagina were inspected and found to be intact. Fundus firmed to U-2 without need for IM pitocin. EBL 200cc. Mother and baby are in satisfactory condition. Weight will be on final delivery report. Expect normal PP course with discharge in 24-36 hours. Nicolasa plans to breast feed her daughter. Providers Nurse Medical Technologist Chemistry: Sowmya Tejada Nurse: Yola Saeed Nurse: Ivonne Preston Labor/Delivery Information Number of Babies in Womb: 1 Steroids Given: None Reason Steroids Not Administered: N/A Group Beta Strep: N/A Antibiotics Administered: No Rubella Status: Immune Blood Type: A+ Varicella Immunity: Immune Shoulder Dystocia: No Stages of Labor Onset of Labor Date: 10/01/23 Onset of Labor Time: 03:40 Complete Dilatation Date: 10/01/23 Complete Dilatation Time: 04:15 Labor - Stage 1 Duration: 35 minutes ROM Baby A: 10/01/23 ROM Baby A: 02:40 ROM Total Time- Baby A: [id number] Infant Delivery Date-Baby A: 10/01/23 Infant Delivery Time-Baby A: 04:21 Labor Stage 2 Duration: 6 minutes Placenta Delivery Date-Baby A: 10/01/23 Placenta Delivery Time-Baby A: 04:42 Labor-Stage 3 Duration: 21 minutes Total Length of Labor-Baby A: 41 minutes Placenta Status: Delivered Baby A Infant Gender: Female Gestational Status: Early Term (37-38.6 wks) Gestational Age in Weeks/Days: 38 Weeks and 3 Days Score-1 Minute Interval(Baby A) Heart Rate-1 minute: 100 BPM or Greater Respiratory Effort- 1 minute: Spontaneous/Strong Cry Muscle Tone-1 minute: Active Movement Reflex Response-1 minute: Minimal Response Color-1 minute: Bluish Hands or Feet Total Score-1 minute: 8 Score-5 Minute Interval(Baby A) Heart Rate- 5 minute: 100 BPM or Greater Respiratory Effort-5 minute: Spontaneous/Strong Cry Muscle Tone-5 minute: Active Movement Reflex Response-5 minute: Prompt Response Color-5 minute: Bluish Hands or Feet Total Score- 5 minute: 9
[2023-10-01] MEDS: Acetaminophen 325 MG TAB 650 MG PO ×2 (05:19→16:54)
[2023-10-01] MEDS: Ibuprofen 600 MG TAB PO ×2 (05:19→16:54)
[2023-10-02 07:50] VITALS: BP 122/84; PULSE 74; RESP 16; TEMP 36.4; O2SAT 100
--- NOTE | 2023-10-02 08:27 | DSE_ITS ---
Date of service: 10/02/23 Time of Service: 08:27 DS: Diagnosis Discharge Diagnosis (1) care following vaginal delivery: Status: Resolved Asessment and Plan: 1. Normal PP course, is aware of PP warning signs 2. RTO 2 and 6 weeks, I reviewed that 2 week visit can be telehealth if needed 3. Discharged to home, declines RX for ibuprofen or tylenol. (2) Lactating mother: Status: Acute Asessment and Plan: 1. Breast feeding is well established 2. Experienced BF Mother 3. To follow up with pediatric provider as scheduled. Discharge Plan Disposition Patient Disposition: Home Condition: Good Discharge Details Reason For Visit: labor Admit Date/Time: 09/30/23 18:32 Admit Provider: Sowmya Tejada Attending Provider: Sowmya Tejada Primary Care Provider: Sowmya Gabriel Hospital Course Hospital Course: presented with regular contractions and advanced dilation at 6cm. Contractions spaced and due to history of precipitous labor as well as advanced dilation AROM was performed after a period of rest and then NVD. No complications. Normal PP course. Home Meds and New Rx's Prescriptions: Continued prenat.vits,quinton,[id number] Tablet 1 tab PO DAILY Discharge Instructions Stand Alone Forms: Instructions, BC Post Vaginal Deliver Activity:: Activity as Tolerated Equipment/Supplies:: No Equipment Needed Diet:: As Tolerated Discharge Orders Discharge Orders: Discharge Order (Routine); Ordered 10/02/23 Ordered By: Sowmya Tejada OB:DS Summary Summary Vaginal Delivery Method: Spontaneaous Episiotomy Description: None Laceration Description: None Laceration Extension: N/A Contraception Discussed Contraception Discussed: Yes (NFP), [place] Infant Gender-Baby A: Female weight: 6 lb 15.289 oz Disposition of Baby A: Home Status at Discharge Functional status at discharge: independent ambulation Overall status at discharge: patient is back to baseline Mental Status: mental status grossly normal Speech and Movement: speech and movement normal Mood: congruent mood Affect: normal affect Time Spent with Patient providing and/or coordinating discharge services: Less than 30 minutes Exam Physical Exam Vital signs: Temp Pulse Resp BP Pulse Ox 98.1 F 65 16 106/53 L 99 10/01/23 19:00 10/01/23 19:00 10/01/23 19:00 10/01/23 19:00 10/01/23 19:00 Vital Signs Reviewed: Yes Constitutional Constitutional: no acute distress, average body habitus and cooperative HEENT Exam HEENT Exam: Normal Neck Exam Neck Exam: Normal (normal visual inspection) Respiratory Exam Respiratory Exam: Normal Cardiovascular Exam Cardiovascular Exam: Normal Abdominal Exam Abdomen: Other (normal exam) Fundal Exam Fundus: Below Umbilicus and Firm Comment: small lochia noted. KH Rectal Exam Rectal Exam: Not Done Exam Perineum: Intact and Normal Extremities Exam Extremity Exam: Normal (denies calf tenderness) and Full ROM Back/Spine/Pelvis Exam Back Exam: Normal Skin Exam Skin Exam: Normal Neurological Exam Neurological Exam: Normal Psychiatric Exam Psychiatric Exam: Normal PFSH All Active Problems Lactating mother (Acute) (Acute) Medical History Echogenic intracardiac focus of fetus on ultrasound Marginal insertion of umbilical cord affecting management of mother Left sided sciatica Abnormal thyroid stimulating hormone (TSH) level During - repeat WNL Family History Maternal Grandmother Breast cancer Mother Hyperlipidemia Father Hypertension Hyperlipidemia Kidney stone Paternal Grandmother Parkinson disease Social History Smoking/Tobacco Use Status: Never Smoking risk assessment performed?: Yes Housing: apartment current occupation: [employer] Female Reproductive History Menstrual control method: condoms History History 3 Para 2 Hx # Term Pregnancies 2 Multiple births 0 Hx # Pregnancies 0 Ectopic pregnancies 0 AB induced 0 Hx Number of Living Children 2 AB spontaneous 0 Past Pregnancies Del. Date GA/Weeks # Preg Succ Route Wgt Sex Labor Lgth Anesth esia Location Prov Complic 01/04/21 39 No vaginal 7 lb 10.4 oz Female 4 hrs 35 min [facility]; MD Rodri hemorrhage other 04/03/22 39 No vaginal Male 1 hour 31 min, (from ROM to delivery of babe) [facility] Delivery Date: 01/04/21 Last Updated by: Sowmya Gabriel CNM Rachel Knox; Tub . bilateral labial lacerations with repair of left labia, left lower vaginal wall and floor. EBL from laceration 800cc. Treated with methergine and TXA Delivery Date: 04/03/22 Last Updated by: Sowmya Gabriel CNM Jefferson Glez Delivered upon arrival by RN. DS: Data Vitals/I&O Vitals and I&O: Vital Signs Temperature 98.1 F 10/01/23 19:00 Temperature Source Oral 10/01/23 19:00 Pulse 65 10/01/23 19:00 Pulse Rhythm Regular 10/01/23 19:00 Respiratory Rate 16 10/01/23 19:00 Blood Pressure 106/53 L 10/01/23 19:00 Blood Pressure Mean 70 10/01/23 19:00 Pulse Oximetry 99 10/01/23 19:00 Oxygen Delivery Method Room Air 09/30/23 19:32 Oxygen Flow Rate 0 09/30/23 19:32 Pain Level 0 10/01/23 17:54 Comment pt sleeping 10/01/23 10:10 Intake & Output 10/01/23 10/01/23 10/02/23 11:59 23:59 11:59 Output Total 850 / 850 Balance -850 / -850 Output: Urine 850 / 850 Other: Urine Color Yellow Voiding Methods Toilet
[2023-10-03 07:47] VITALS: BP 106/50; PULSE 73
== END 2023-10-02 11:05 | disposition home or self-care (01) | DRG 807 ==
PROVIDERS: Admitting Provider Advanced Practice Midwife; PCP Advanced Practice Midwife; Visit Provider Advanced Practice Midwife
DX: O75.89 Other specified complications of labor and delivery (principal); Z37.0 Single live birth; M54.32 Sciatica, left side; Z3A.38 38 weeks gestation of pregnancy; O69.89X0 Labor and delivery complicated by other cord complications, not applicable or unspecified; O87.8 Other venous complications in the puerperium
CPT/HCPCS: 85027; 86850; 86900; 86901

== ENCOUNTER 2024-09-06 10:41 | Outpatient (REF) | payer MEDICAID, SELFPAY | END 2024-09-06 10:42 | disposition home or self-care (01) | LOC: LBN 10:41 | PROVIDERS: PCP Advanced Practice Midwife; Visit Provider Advanced Practice Midwife | DX: Z34.91 Encounter for supervision of normal pregnancy, unspecified, first trimester (principal) | CPT/HCPCS: 87086 ==

== ENCOUNTER 2025-02-18 11:31 | Outpatient (REF) | payer MEDICAID, SELFPAY | END 2025-02-18 11:32 | disposition home or self-care (01) | LOC: LBN 11:31 | PROVIDERS: PCP Advanced Practice Midwife; Visit Provider Advanced Practice Midwife | DX: Z34.93 Encounter for supervision of normal pregnancy, unspecified, third trimester (principal) | CPT/HCPCS: 87081 ==

== ENCOUNTER 2025-03-07 18:03 | Inpatient (IN) | payer MEDICAID, SELFPAY ==
[2025-03-07] VITALS (8 sets, daily range): BP systolic 112–129; BP diastolic 63–74; PULSE 58–90; RESP 17; TEMP 36.9; O2SAT 99
--- NOTE | 2025-03-07 17:59 | HPE_ITS ---
Date of service: 03/07/25 Time of Service: 17:59 Assessment and Plan Assessment and plan (1) Labor, precipitous: Status: Acute Assessment and plan: Admit and Anticipate OB-HPI Labor/Delivery History of Present Illness Reason for Visit: labor Chief Complaint: Uterine Contractions. DUANE Calculator Estimated Delivery Date Method WG Current Estimate 03/10/25 LMP (Certain) Other Estimates 03/16/25 Ultrasound #1 Infant Delivery Date-Baby A 03/07/25 39w 4d History of Present Expected Delivery Route/Plan - CNM FOB/ - Niko Baumann (4th child together) Will learn gender at 20 wk u/s: BG Strongly hopes for another waterbirth GBS neg Specific Issues/Plan 1. Declines cfDNA screen; 5 P screen negative 2. Lives near [place], prefers labs & ultrasound @ [facility], done and WNL entered 3. Keep lab tests to a minimum, check-ups on weekends in , use telehealth option [facility] 4. Close pregnancies, still nursing 11 mo but will wean in a few months 5. Needs new breast pump, wants to assure adequate supply, LC consult done 6. Declines GDM screening, informed consent documented in visit log Narrative: 29y.o at 39w4d presents in active labor. Hx fast deliveries and patient is driving in from [place]. Has have 3 successful uncomplicated vaginal deliveries with two waterbirths. Rubella immune, varicella immune, BT A+. Supported by [employer] Review of Systems Narrative: patient walked to Room 300 and into birthing tub, FHT's 140s Unobtainable due to (unobtainable due to active labor, reporting strong uterine contractions) PFSH All Active Problems (Updated 03/07/25 @ 19:14 by Светлана Ellis CNM) Labor, precipitous (Acute) (Acute) Lactating mother (Acute) Medical History Echogenic intracardiac focus of fetus on ultrasound Marginal insertion of umbilical cord affecting management of mother Left sided sciatica Abnormal thyroid stimulating hormone (TSH) level During - repeat WNL Family History Maternal Grandmother Breast cancer Mother Hyperlipidemia Father Hypertension Hyperlipidemia Kidney stone Paternal Grandmother Parkinson disease Social History Smoking/Tobacco Use Status: Never Smoking risk assessment performed?: Yes Alcohol Intake: never Drug use: Never Substance use type: does not use Housing: apartment current occupation: [employer] Do you feel safe at home: Yes Do you feel safe in your relationship?: Yes Female Reproductive History Menstrual control method: condoms History History 4 Para 3 Hx # Term Pregnancies 3 Multiple births 0 Hx # Pregnancies 0 Ectopic pregnancies 0 AB induced 0 Hx Number of Living Children 3 AB spontaneous 0 Past Pregnancies Del. Date GA/Weeks # Preg Succ Route Wgt Sex Labor Lgth Anesth esia Location Prov Complic 01/04/21 39 No Yes vaginal 7 lb 10.4 oz Female 4 hrs 35 min TU Irizarry; MD Rodri hemorrhage other 04/03/22 39 No Yes vaginal 7 lb 3 oz Male 1 hour 31 min , (from ROM to delivery of babe) TU Castillo 10/01/23 38 No Yes vaginal 6 lb 15.29 oz Female 41 min TU Rehman Delivery Date: 01/04/21 Last Updated by: TU Ramirez; Tub . bilateral labial lacerations with repair of left labia, left lower vaginal wall and floor. EBL from laceration 800cc. Treated with methergine and TXA Delivery Date: 04/03/22 Last Updated by: Sowmya Gabriel CNM Jefferson Glez Delivered upon arrival by RN. Delivery Date: 10/01/23 Last Updated by: Sowmya Gabriel CNM Laurie nml waterbirth. Delivered quickly after AROM. Meds Allergies and Home Medications Allergies Allergy/AdvReac Type Severity Reaction Status Date / Time gluten AdvReac Mild GI upset Unverified 03/07/25 09:19 Home Medications ?Medication ?Instructions ?Recorded ?Confirmed ?Type prenat.vits,quinton,[id number] 1 tab PO DAILY 06/20/20 02/28/25 History Exam Physical Exam Vital Signs Reviewed: No Constitutional Constitutional: moderate distress Detailed Labor and Delivery Exam Cochran Score: Cervical Points Exam 0 1 2 3 Dilation Closed 1-2cm 3-4 cm 5-6cm Effacement 0-30% 40-50% 60-70% 80% Consistency Firm Medium Soft Station -3 -2 -1,0 +1,+2 Position Posterior Mid Anterior Amniotic Membrane Status: Intact Contraction Frequency(min): 2-3 Contraction Duration(sec): 60 Contraction Intensity: Strong Fetus A Heart Rate Baseline: 145 Monitor Accelerations: Present Monitor Decelerations: Early Presentation: Vertex Categories: Category I Assessment Note: auscultation of fetus via Doppler, FHTs 145 with increases heard, early deceleration with contraction Respiratory Exam Respiratory Exam: Normal Abdominal Exam Abdominal Exam: Normal Risk Assessment Risk for Shoulder Dystocia Historical/Initial OB: NEGATIVE FOR: Pelvic Abnormality, Pre- BMI>30, Previous Shoulder Dystocia or Previous Macrosomia Risk for Pre-Eclampsia Yes, if one or more: NEGATIVE FOR: Hx Pre-E/Gest HTN, Chronic HTN, Multiple Gestation, Pre-gestational DM, Renal Disease, Systemic Lupus or APA Syndrome Yes, if 2 or more: NEGATIVE FOR: Age>= 35 yrs, >10yr btwn pregnancies, BMI>30, ethinicty, Mother/Sister w/ Pre-E or Previous IUGR Risk for Post- Hemorrhage Initial: POSITIVE FOR: Previous PPH (R/T laceration and hematoma. EBL 800cc. Treatment with methergine and TXA.); NEGATIVE FOR: Multiple Gestation, Known Clotting Deficiency, Grand Multiparity or Anticoagulation Counseled re: Active Management: Yes Risks Reviewed Risks Reviewed Upon Admission: Yes
[2025-03-07] MEDS: Oxytocin 10 UNITS/ML VIAL IM (18:45)
--- NOTE | 2025-03-07 19:02 | OBVDS_ITS ---
Date of service: 03/07/25 Time of Service: 19:02 OB Labor/ Delivery Information Baby A Delivery Delivery Method: Spontaneaous Presentation: Cephalic Cephalic Position: Vertex Vertex Position: Left Occipital Anterior Cord Description-Baby A: 3 Vessels Amniotic Fluid: Clear Estimated Blood Loss: 200 Delivery Outcome: Liveborn Complications: none Transferred: [facility] Note: FHTs 140 during first stage of labor. FHTs 140 in second stage. She progressed to full dilation and began pushing in the tub. Second stage huddle was done. ROM clear fluid. Spontaneous delivery of female delivered on hands and knees in the tub. Baby was placed on mother's abdomen and dried and stimulated. Spontaneous cry. 7/9. Patient helped out of tub and to bed. Cord was clamped and cut by PAVAN Gerardo . The placenta delivered spontaneously and appears to by intact with a three vessel cord. Pitocin IM was administered after delivery of the placenta. The perineum was inspected and intact . The baby did breastfeed. After delivery, Mother and baby and father of the baby were stable and bonding well in the delivery room and there were no complications. Providers Nurse Barrel Inspector Tight: Светлана Ellis Nurse: Mya Pickett Nurse: Shameka Reddy Labor/Delivery Information Number of Babies in Womb: 1 Steroids Given: None Reason Steroids Not Administered: N/A Group Beta Strep: Negative Antibiotics Administered: No Rubella Status: Immune Blood Type: A+ Varicella Immunity: Immune Maternal Complications: Precipitous Labor(<3hrs) Shoulder Dystocia: No Stages of Labor Onset of Labor Date: 03/07/25 Onset of Labor Time: 17:00 Complete Dilatation Date: 03/07/25 Complete Dilatation Time: 18:00 Labor - Stage 1 Duration: 1 hours and 0 minutes ROM Baby A: 03/07/25 ROM Baby A: 18:00 ROM Total Time- Baby A: [id number] Delivery Date-Baby A: 03/07/25 Delivery Time-Baby A: 18:22 Labor Stage 2 Duration: 22 minutes Placenta Delivery Date-Baby A: 03/07/25 Placenta Delivery Time-Baby A: 18:46 Labor-Stage 3 Duration: 24 minutes Total Length of Labor-Baby A: 1 hours and 22 minutes Placenta Cultured: No Placenta Status: Delivered Baby A Infant Gender: Female Gestational Status: Term (39-41.6 wks) Gestational Age in Weeks/Days: 39 Weeks and 4 Days Length-Baby A: 21 in Score-1 Minute Interval(Baby A) Heart Rate-1 minute: 100 BPM or Greater Respiratory Effort- 1 minute: Slow Respiration/Weak Cry Muscle Tone-1 minute: Active Movement Reflex Response-1 minute: Prompt Response Color-1 minute: Pallor or Cyanosis Total Score-1 minute: 7 Score-5 Minute Interval(Baby A) Heart Rate- 5 minute: 100 BPM or Greater Respiratory Effort-5 minute: Spontaneous/Strong Cry Muscle Tone-5 minute: Active Movement Reflex Response-5 minute: Prompt Response Color-5 minute: Bluish Hands or Feet Total Score- 5 minute: 9
[2025-03-07] MEDS: Ibuprofen 600 MG TAB PO (19:32)
[2025-03-07] MEDS: Acetaminophen 325 MG TAB 650 MG PO (19:32)
[2025-03-07] MEDS: Dibucaine 1% 28 GM TUBE TP (19:33)
[2025-03-07] MEDS: Hamamelis Leaf/Glycerin 100 EACH BOX PR (19:33)
[2025-03-08 01:20] VITALS: BP 118/67; PULSE 62; RESP 17; TEMP 36.8; O2SAT 99
[2025-03-08] MEDS: Acetaminophen 325 MG TAB 650 MG PO (06:45)
--- NOTE | 2025-03-08 09:43 | W.PM.OBPNV1 ---
Date of service: 03/08/25 Time of Service: 09:43 Assessment and Plan Assessment and plan (1) Term delivered: Status: Acute Assessment and plan: A: PPD#1, nml recovery off to a good start P: Pt plans fertility awareness for contraception Undecided regarding discharge to home tonight or tomorrow Written instructions will be reviewed and given to pt F/up at 2 & 6 wks will be scheduled Subjective Subjective Patient comments: No complaints, Pain well controlled, Tolerating diet and Flatus present Patient's Mood: tired, satisfied baby status: Doing well, Nursing well, Rooming in and Strong Bonding Observed feeding status: Exclusively breast feeding Exam Physical Exam Vital signs: Temp Pulse Resp BP Pulse Ox 98.2 F 62 17 118/67 99 03/08/25 01:20 03/08/25 01:20 03/08/25 01:20 03/08/25 01:20 03/08/25 01:20 Vital Signs Reviewed: Yes Constitutional Constitutional: no acute distress and cooperative HEENT Exam HEENT Exam: Normal Neck Exam Neck Exam: Normal Breast Exam Bilateral: Breast Exam: Normal and Soft Nipple Exam: Normal and Uninjured Respiratory Exam Respiratory Exam: Normal Cardiovascular Exam Cardiovascular Exam: Normal Abdominal Exam Abdomen: Other (nontender, soft) Fundal Exam Fundus: Below Umbilicus and Firm Rectal Exam Rectal Exam: Not Done Exam Patient deferred: external exam Perineum: Intact Extremities Exam Extremity Exam: Normal Back/Spine/Pelvis Exam Back Exam: Normal Skin Exam Skin Exam: Normal Neurological Exam Neurological Exam: Normal Psychiatric Exam Psychiatric Exam: Normal
[2025-03-08 11:30] VITALS: BP 94/62; PULSE 70; RESP 16; TEMP 36.6
--- NOTE | 2025-03-08 19:28 | W.PM.OBDISCH ---
Date of service: 03/08/25 Time of Service: 19:28 DS: Diagnosis Discharge Diagnosis (1) Term delivered: Status: Acute Discharge Plan Disposition Patient Disposition: Home Condition: Good Discharge Details Reason For Visit: labor Admit Date/Time: 03/07/25 18:03 Admit Provider: Светлана Ellis Attending Provider: Светлана Ellis Primary Care Provider: Sowmya Gabriel Hospital Course Hospital Course: shortly after pt arrived in unit, nml course Home Meds and New Rx's Prescriptions: No Action prenat.vits,quinton,uoc-lzav-eftki Tablet 1 tab PO DAILY Discharge Instructions Additional Instructions: Please keep 2 and 6 week appointments with the midwives, telehealth visits can be arranged if needed. Stand Alone Forms: BC Instructions, BC Post Vaginal Deliver Activity:: Activity as Tolerated Equipment/Supplies:: No Equipment Needed Diet:: Normal Diet Discharge Orders Discharge Orders: Discharge Order (Routine); Ordered 03/08/25 Ordered By: Carolyn Barragan OB:DS Summary Summary Vaginal Delivery Method: Spontaneaous Episiotomy Description: None Laceration Description: None Contraception Discussed Contraception Discussed: Yes Contraceptive Plan: Not planning to use, [place] Gender-Baby A: Female weight: 7 lb 0.348 oz Status at Discharge Functional status at discharge: independent ambulation Overall status at discharge: patient is progressing back to baseline Mental Status: mental status grossly normal Speech and Movement: speech and movement normal and speech clear Mood: congruent mood Affect: normal affect Quality:SDOH Health Related Social Needs: No Data to Display Exam Physical Exam Vital signs: Temp Pulse Resp BP Pulse Ox 97.9 F 70 16 94/62 L 99 03/08/25 11:30 03/08/25 11:30 03/08/25 11:30 03/08/25 11:30 03/08/25 01:20 Constitutional Constitutional: no acute distress and cooperative HEENT Exam HEENT Exam: Normal Neck Exam Neck Exam: Normal Breast Exam Bilateral: Breast Exam: Normal and Soft Respiratory Exam Respiratory Exam: Normal Cardiovascular Exam Cardiovascular Exam: Normal Abdominal Exam Abdomen: Other (nontender, soft) Fundal Exam Fundus: Below Umbilicus and Firm Rectal Exam Rectal Exam: Not Done Exam Patient deferred: external exam Perineum: Intact Extremities Exam Extremity Exam: Normal Back/Spine/Pelvis Exam Back Exam: Normal Skin Exam Skin Exam: Normal Neurological Exam Neurological Exam: Normal Psychiatric Exam Psychiatric Exam: Normal PFSH All Active Problems (Updated 03/08/25 @ 09:45 by Carolyn Barragan) Term delivered (Acute) Lactating mother (Acute) Medical History (Updated 03/08/25 @ 09:45 by Carolyn Barragan) Labor, precipitous Echogenic intracardiac focus of fetus on ultrasound Marginal insertion of umbilical cord affecting management of mother Left sided sciatica Abnormal thyroid stimulating hormone (TSH) level During - repeat WNL Family History Maternal Grandmother Breast cancer Mother Hyperlipidemia Father Hypertension Hyperlipidemia Kidney stone Paternal Grandmother Parkinson disease Social History Smoking/Tobacco Use Status: Never Smoking risk assessment performed?: Yes Alcohol Intake: never Drug use: Never Substance use type: does not use Housing: apartment current occupation: [employer] Do you feel safe at home: Yes Do you feel safe in your relationship?: Yes Female Reproductive History Menstrual control method: condoms History History 4 Para 3 Hx # Term Pregnancies 3 Multiple births 0 Hx # Pregnancies 0 Ectopic pregnancies 0 AB induced 0 Hx Number of Living Children 3 AB spontaneous 0 Past Pregnancies Del. Date GA/Weeks # Preg Succ Route Wgt Sex Labor Lgth Anesthesia Location Prov Complic 01/04/21 39 No Yes vaginal 7 lb 10.4 oz Female 4 hrs 35 min TU Irizarry; MD Rodri hemorrhage other 04/03/22 39 No Yes vaginal 7 lb 3 oz Male 1 hour 31 min, (from ROM to delivery of babe) TU Castillo 10/01/23 38 No Yes vaginal 6 lb 15.29 oz Female 41 min TU Rehman Delivery Date: 01/04/21 Last Updated by: TU Ramirez; Tub . bilateral labial lacerations with repair of left labia, left lower vaginal wall and floor. EBL from laceration 800cc. Treated with methergine and TXA Delivery Date: 04/03/22 Last Updated by: Sowmya Gabriel CNM Jefferson Glez Delivered upon arrival by RN. Delivery Date: 10/01/23 Last Updated by: Sowmya Gabriel, TU Sullivan nml waterbirth. Delivered quickly after AROM. DS: Data Vitals/I&O Vitals and I&O: Vital Signs Temperature 97.9 F 03/08/25 11:30 Temperature Source Tympanic 03/08/25 11:30 Pulse 70 03/08/25 11:30 Pulse Rhythm Regular 03/08/25 09:00 Respiratory Rate 16 03/08/25 11:30 Respiratory Depth Normal 03/08/25 09:00 Blood Pressure 94/62 L 03/08/25 11:30 Blood Pressure Mean 72 03/08/25 11:30 Pulse Oximetry 99 03/08/25 01:20 Oxygen Delivery Method Room Air 03/07/25 18:15 Oxygen Flow Rate 0 03/07/25 18:15 Pain Level 10 03/07/25 18:15 Comment pt is in the tub 03/07/25 20:30 Intake & Output 03/07/25 03/08/25 03/08/25 23:59 11:59 23:59 Output Total 200 / 200 500 / 500 Balance -200 / -200 -500 / -500 Weight 140 lb Output: Urine 200 / 200 500 / 500 Other: Urine Color Yellow Yellow
[2025-03-10] VITALS (27 sets, daily range): BP systolic 105–128; BP diastolic 55–78; PULSE 54–96; O2SAT 99–100
[2025-03-11] VITALS: BP 121/58; PULSE 55
[2025-03-11 00:15] VITALS: BP 124/59; PULSE 53
[2025-03-11 00:52] VITALS: BP 118/70; PULSE 58
[2025-03-11 01:22] VITALS: BP 123/77; PULSE 63
[2025-03-11 01:51] VITALS: BP 109/57; PULSE 56
[2025-03-11 02:47] VITALS: BP 121/55; PULSE 66
== END 2025-03-08 20:50 | disposition home or self-care (01) | DRG 807 ==
LOC: OBS 18:26
PROVIDERS: Admitting Provider Advanced Practice Midwife; PCP Advanced Practice Midwife; Visit Provider Advanced Practice Midwife
DX: O62.3 Precipitate labor (principal); Z37.0 Single live birth; Z3A.39 39 weeks gestation of pregnancy
CPT/HCPCS: 85027; 86850; 86900; 86901; J2590

== ENCOUNTER 2025-04-18 13:50 | Outpatient (REF) | payer MEDICAID, SELFPAY ==
--- NOTE | 2025-04-18 13:00 | PAPFT_PTH ---
PATIENT: Nicolasa Baumann LOC: [facility] U#:[id number] AGE/SX: 29/F ROOM: RE04/18/[address]: Carolyn Barragan CNM : 1995 BED: DIS: 04/18/2025 SPEC #: [id number] RECD: 04/18/25 17:47 STATUS: TIP REAde #: [id number] SUKHWINDER: 04/18/25 13:[address]: Carolyn Barragan DEPT: [facility] Cytology RECD BY: Bertha Hall ENTERED: 04/18/25 17:47 SP TYPE: PAPFT OTHR DR: Sowmya Gabriel Tissues: 1 - CX/ENDOCX FOR PAP SMEARS Procedures: PAP THIN PREP/UVM Screening HPV DNA PROBE Comments: [id number] (HPV 16 & 18/45)
== END 2025-04-18 13:51 | disposition home or self-care (01) ==
LOC: LBN 13:50
PROVIDERS: PCP Advanced Practice Midwife; Visit Provider Advanced Practice Midwife
DX: Z12.4 Encounter for screening for malignant neoplasm of cervix (principal)
CPT/HCPCS: 88142; 87624